=== PATIENT | female | born 1945 | race Asian ===

== ENCOUNTER 2017-05-02 11:37 | Inpatient (IN) | payer MEDICAID, OTHER ==
[~2017-05-02] VITALS: Ht 152.4 cm; Wt 54.6 kg
[2017-05-02 17:55] VITALS: BP 139/85; PULSE 75; RESP 18; TEMP 97.9; O2SAT 97
[2017-05-02] MEDS ORDERED: diphenhydrAMINE HCL 25 MG CAP PO PRN (18:15)
[2017-05-02] MEDS ORDERED: LORazepam 0.5 MG TAB PO PRN (18:15)
[2017-05-02] MEDS ORDERED: LORazepam 2 MG/ML VIAL IM PRN (18:15)
[2017-05-02] MEDS ORDERED: diphenhydrAMINE HCL 50 MG/ML VIAL IM PRN (18:15)
[2017-05-02] MEDS ORDERED: cloNIDine HCL 0.1 MG TAB PO PRN (18:15)
[2017-05-02] MEDS ORDERED: ACETAMINOPHEN 325 MG TAB PO PRN (18:30)
[2017-05-02] MEDS ORDERED: ALUMINUM/MAGNESIUM/SIMETH 30 ML CUP PO PRN (18:30)
[2017-05-02] MEDS ORDERED: BISACODYL EC 5 MG TABEC PO PRN (18:30)
[2017-05-03 06:00] VITALS: BP 171/73; PULSE 62; RESP 17; TEMP 97.8; O2SAT 98
[2017-05-03] MEDS ORDERED: DEXTROSE 50% IN WATER 50 ML VIAL(D50) IV PRN ×2 (08:00→14:45)
[2017-05-03] MEDS ORDERED: GLUCAGON 1 MG/ML VIAL OTHER PRN (08:00)
[2017-05-03] MEDS ORDERED: metFORMIN HCL 500 MG TAB PO SCH (09:00)
[2017-05-03] MEDS ORDERED: LISINOPRIL 10 MG TAB PO SCH (09:00)
[2017-05-03] MEDS ORDERED: PNEUMOCOCCAL POLYVALENT INJ 25 MCG/0.5 ML SYR IM ONE (10:00)
[2017-05-03 10:16] LABS: ANION GAP 11 MEQ/L (5-15); BICARBONATE 23.3 MEQ/L (21.0-32.0); BLOOD UREA NITROGEN 20 MG/DL (7-18); CHLORIDE 103 MEQ/L (98-107); GLOMERULAR FILTRATION RATE 45 ML/MIN (>89); POTASSIUM 4.2 MEQ/L (3.5-5.1); SODIUM (NA) 137 MEQ/L (136-145)
[2017-05-03 10:20] LABS: LDL CHOLESTEROL 157 MG/DL (0-99)
[2017-05-03 10:54] VITALS: BP 157/73
[2017-05-03] MEDS ORDERED: INSULIN ASPART SUPPLEMENTAL SCALE SQ SCH (11:00)
[2017-05-03] MEDS ORDERED: METF500T PO (11:02)
[2017-05-03] MEDS ORDERED: LISI10TA3 PO (11:02)
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
[2017-05-03 13:26] LABS: HEMOGLOBIN A1a 1.5 %; HEMOGLOBIN A1b 2.8 %; HEMOGLOBIN Ao 78.5 %; HEMOGLOBIN LA1C 3.5 %; HEMOGLOBIN P3 4.7 %
--- NOTE | 2017-05-03 14:08 | PD.CONS ---
HPI Service [facility] Consult Requested By Psychiatry team Reason for Consult Medical management Primary Care Physician Unknown Diagnoses: History of Present Illness Written by Christopher Kramer, acting as scribe for Dr. Alfaro on 05/03/17 at 14: 06. Sai historical interpreter use: Walter 2001 Patient is a 72-year-old Cantonese female with primary medical history of diabetes, hypertension who came in the hospital under Whitman act transferred from [facility] for evaluation of auditory hallucinations. She is now admitted to inpatient psychiatry unit for further evaluation. Consulted for medical management. Patient seen and examined today. Speaks Cantonese only, very minimal Indonesian. Commercial Reporter services use. Patient is very pleasant. Patient knows she is in the hospital does not know the name, she knows the month is April. States that she has diabetes and hypertension and that her mother of complications of diabetes. Denies any surgical history. She states that the only problem she has is that after she had a baby, she became somewhat incontinent of her urine and sometimes stool. Reports her told her to have it fixed but she said she wasn't able to. Patient reports she was given some medication (Ativan ) and she felt like she is dizzy or asleep all the time. When asked if she is having auditory hallucination, patient was defensive saying "are you saying I'm crazy ."Otherwise, she denies any pain or discomfort, denies shortness of breath or dyspnea, denies nausea, vomiting, diarrhea. Denies fevers or chills. Denies dysuria. As per nursing staff, patient has been having some hallucinations and noncompliance with her medications. Her daughter suspects that she has bipolar and she is also becoming very aggressive with family members. Daughter states that patient has been seeing people who have including her brother and other relatives. Review of Systems Except as stated in HPI: all other systems reviewed are Neg Past Family Social History Allergies: Coded Allergies: No Known Allergies (Unverified , 05/02/17) Past Medical History Diabetes Hypertension HLD Past Surgical History None Reported Medications Reported Meds & Active Scripts Active Reported Lisinopril 10 Mg Tab 10 Mg PO DAILY Metformin (Metformin HCl) 500 Mg Tab 500 Mg PO DAILY With a meal Active Ordered Medications Current Medications Medications (Trade) Dose Ordered Sig/Yesi Route Start Time Stop Time Status Last Admin (Ativan) 0.5 mg Q12H PRN PO 05/02/17 18:15 (Ativan Inj) 0.5 mg Q12H PRN IM 05/02/17 18:15 (Benadryl) 25 mg Q6H PRN PO 05/02/17 18:15 (Benadryl Inj) 25 mg Q6H PRN IM 05/02/17 18:15 (Catapres) 0.1 mg Q8HR PRN PO 05/02/17 18:15 (Tylenol) 650 mg Q4H PRN PO 05/02/17 18:30 (Mag-Al Plus Susp Liq) 30 ml Q6H PRN PO 05/02/17 18:30 (Dulcolax Ec) 10 mg DAILY PRN PO 05/02/17 18:30 (Glucophage) 500 mg DAILY PO 05/03/17 09:00 05/03/17 09:00 (Prinivil) 10 mg DAILY PO 05/03/17 09:00 05/03/17 09:00 (D50w (Vial) Inj) 50 ml UNSCH PRN IV 05/03/17 08:00 (Glucagon Inj) 1 mg UNSCH PRN OTHER 05/03/17 08:00 Family History Mother has diabetes and of complications of diabetes Social History Denies alcohol use Denies tobacco use Denies illicit drug use Physical Exam Vital Signs Vital Signs Date Time Temp Pulse Resp B/P Pulse Ox O2 Delivery O2 Flow Rate FiO2 05/03/17 10:54 157/73 05/03/17 06:00 97.8 62 17 171/73 98 05/02/17 17:55 97.9 75 18 139/85 97 Physical Exam GENERAL: This is a well-nourished, well-developed patient, in no apparent distress. SKIN: Warm and dry. HEAD: Atraumatic. Normocephalic. No temporal or scalp tenderness. EYES: Pupils equal round and reactive. Extraocular motions intact. No scleral icterus. No injection or drainage. ENT: Nose without bleeding. Throat without erythema. Uvula midline. Airway patent. NECK: Trachea midline. Supple. CARDIOVASCULAR: Regular rate and rhythm without murmurs, gallops, or rubs. RESPIRATORY: Clear to auscultation. Breath sounds equal bilaterally. No wheezes , rales, or rhonchi. GASTROINTESTINAL: Abdomen soft, non-tender, nondistended. Bowel sounds active 4. No guarding. MUSCULOSKELETAL: Extremities without clubbing, cyanosis, or edema. NEUROLOGICAL: Awake and alert. Oriented to person, month. Motor and sensory grossly within normal limits. Normal speech. Laboratory Outside records reviewed showed head CT with old stroke, CBC, CMP, urinalysis unremarkable Laboratory Tests Test 05/03/17 09:00 Sodium Level 137 Potassium Level 4.2 Chloride Level 103 Carbon Dioxide Level 23.3 Anion Gap 11 Blood Urea Nitrogen 20 Creatinine 1.18 Estimat Glomerular Filtration 45 Rate Random Glucose 387 Calcium Level 9.2 Triglycerides Level 102 Cholesterol Level 248 LDL Cholesterol 157 HDL Cholesterol 71.0 Cholesterol/HDL Ratio 3.49 Result Diagram: 05/03/17 0900 Assessment and Plan Problem List: (1) HLD (hyperlipidemia) ICD Code: E78.5 Status: Chronic (2) DM type 2 (diabetes mellitus, type 2) ICD Code: E11.9 Status: Chronic (3) HTN (hypertension) ICD Code: I10 Status: Chronic Assessment and Plan Patient is a 72-year-old Cantonese female with primary medical history of diabetes, hypertension who came in the hospital under Whitman act transferred from [facility] for evaluation of auditory hallucinations. She is now admitted to inpatient psychiatry unit for further evaluation. Consulted for medical management. Auditory hallucinations - Managed by psychiatry team HTN - Elevated BP - On lisinopril 10 mg, will hold for now secondary to elevated creatinine - hydralazine 10mg TID, - clonidine PRN DM 2 - On metformin, will hold off for now secondary to elevated creatinine - Insulin sliding scale - Monitor Accu-Cheks - Check hemoglobin A1c Acute kidney injury - Previous creatinine in another facility is 0.62 - Possibly dehydration related. Check CK patient has been receiving intramuscular injections to rule out rhabdomyolysis - Avoid nephrotoxins - Encourage by mouth fluid Hyperlipidemia - Discuss with patient results of labs regarding her LDL, starting on statin medication, risks and benefits. Agrees with plan - Start atorvastatin 20 mg daily DVT prop ambulatory Code Status Full Code Discussed Condition With Patient, nursing, Dr. Leon This note was transcribed by soren Kramer I, Dr. Joce Alfaro personally performed the history, physical exam, and medical decision making; and confirmed the accuracy of the information in the transcribed note. Authenticated by Dr. Joce Alfaro on 05/03/17 at 14:06 Christopher Troy May 03, 2017 14:08 Joce Alfaro MD May 03, 2017 15:11
[2017-05-03] MEDS ORDERED: cloNIDine HCL 0.1 MG TAB PO PRN (15:00)
[2017-05-03] MEDS: INSULIN ASPART SUPPLEMENTAL SCALE SQ SCH ×2 (16:00→21:00)
[2017-05-03 16:58] LABS: INDIRECT BILIRUBIN 0.6 MG/DL (0.0-0.8); TOTAL BILIRUBIN ADULT 0.7 MG/DL (0.2-1.0)
[2017-05-03] MEDS: hydrALAZINE HCL 10 MG TAB PO SCH (21:01)
[2017-05-03] MEDS: ATORVASTATIN 20 MG TAB PO SCH (21:01)
[2017-05-04 05:24] VITALS: BP 157/74; PULSE 76; RESP 17; TEMP 96.8
[2017-05-04] MEDS: hydrALAZINE HCL 10 MG TAB PO SCH ×3 (06:05→22:05)
[2017-05-04] MEDS: INSULIN ASPART SUPPLEMENTAL SCALE SQ SCH ×4 (06:05→23:00)
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
[2017-05-04 13:41] VITALS: BP 149/69; PULSE 76; RESP 18; TEMP 98.9; O2SAT 97
[2017-05-04 15:20] LABS: HEMATOCRIT 42.4 % (35.0-46.0); MEAN CELL VOLUME 68.8 FL (80.0-100.0); MEAN CORPUSCULAR HEMOGLOBIN 21.7 PG (27.0-34.0); MEAN CORPUSCULAR HGB CONC 31.5 % (32.0-36.0); PLATELET COUNT 285 TH/MM3 (150-450); RED BLOOD COUNT 6.16 MIL/MM3 (4.00-5.30); RED CELL DISTRIBUTION WIDTH 15.9 % (11.6-17.2); REVIEW FLAG FINAL; WHITE BLOOD COUNT 8.4 TH/MM3 (4.0-11.0)
[2017-05-04 15:45] LABS: BICARBONATE 28.2 MEQ/L (21.0-32.0); POTASSIUM 4.2 MEQ/L (3.5-5.1)
[2017-05-04 16:28] LABS: BACTERIA, URINE MOD /hpf; BLOOD, URINE NEG (NEG); COMMENT (UR) CULTURE INDICATED; CULTURE IF INDICATED CULTURE INDICATED; GLUCOSE,URINE NEG (NEG); HYALINE CAST, URINE 1 /lpf (RARE); KETONE, URINE NEG (NEG); MUCUS URINE FEW /lpf (OCC); NITRITE,URINE NEG (NEG); PH, URINE 5.5 (5.0-8.5); SQUAMOUS EPITHELIAL CELL URINE <1 /hpf (0-5); URINE COLOR YELLOW (YELLW/STRAW)
[2017-05-04 16:49] VITALS: BP 144/70; PULSE 79; RESP 18; TEMP 97.9
[2017-05-04] MEDS: NITROFURANTOIN MONOHYD MACROCR 100 MG CAP PO SCH (18:31)
[2017-05-04] MEDS: ATORVASTATIN 20 MG TAB PO SCH (21:38)
[2017-05-04 22:00] VITALS: BP 157/71; PULSE 70; RESP 20; TEMP 96.3; O2SAT 97
[2017-05-05] MEDS: hydrALAZINE HCL 10 MG TAB PO SCH (05:57)
[2017-05-05 06:08] VITALS: BP 161/69; PULSE 71; RESP 18; TEMP 97.7; O2SAT 99
[2017-05-05] MEDS: INSULIN ASPART SUPPLEMENTAL SCALE SQ SCH ×4 (06:26→21:00)
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
[2017-05-05] MEDS ORDERED: hydrALAZINE HCL 10 MG TAB PO PRN (10:30)
[2017-05-05] MEDS: LISINOPRIL 10 MG TAB PO SCH (11:40)
[2017-05-05] MEDS: NITROFURANTOIN MONOHYD MACROCR 100 MG CAP PO SCH ×2 (11:40→17:55)
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
[2017-05-05 15:24] VITALS: BP 125/69; PULSE 73
[2017-05-05 18:01] VITALS: BP 177/81; PULSE 83; RESP 19; O2SAT 99
--- NOTE | 2017-05-05 18:35 | HHI.PR ---
Blank section for building Written by Chiquita Corona, acting as scribe for Dr. Perez on 05/05/17 at 18:34. Chart reviewed also reviewed charting from prior hospitalization including urine culture C&S report Patient restarted on home lisinopril as well as home metformin Macrobid DC'd and patient started on Bactrim DS by mouth recommend one tablet every 12 hours 5 days Patient appears medically stable at this point we'll sign off if patient's condition changes or further assistance is needed please reconsult Recommended outpatient follow-up after discharge Chiquita Corona May 05, 2017 18:35
[2017-05-05 20:15] VITALS: BP 173/82; PULSE 78; RESP 16; TEMP 97.8; O2SAT 97
[2017-05-05] MEDS: SULFAMETHOXAZOLE-TRIMETHOPRIM DS 800-160 MG TAB PO SCH (21:56)
[2017-05-05] MEDS: QUEtiapine FUMARATE 25 MG TAB PO SCH (21:56)
[2017-05-05] MEDS: ATORVASTATIN 20 MG TAB PO SCH (21:56)
[2017-05-06 06:00] VITALS: BP 128/72; PULSE 70; RESP 16; TEMP 97.5
[2017-05-06] MEDS: INSULIN ASPART SUPPLEMENTAL SCALE SQ SCH ×4 (06:51→21:20)
[2017-05-06 07:08] LABS: BICARBONATE 24.8 MEQ/L (21.0-32.0); POTASSIUM 4.3 MEQ/L (3.5-5.1)
[2017-05-06] MEDS: QUEtiapine FUMARATE 25 MG TAB PO SCH ×2 (09:39→21:20)
[2017-05-06] MEDS: SULFAMETHOXAZOLE-TRIMETHOPRIM DS 800-160 MG TAB PO SCH ×2 (09:39→21:20)
[2017-05-06] MEDS: metFORMIN HCL 500 MG TAB PO SCH (09:40)
[2017-05-06] MEDS: LISINOPRIL 10 MG TAB PO SCH (09:40)
--- NOTE | 2017-05-06 13:02 | HHI.PYPN ---
Subjective Remarks Patient seen and examined with counselor and nurse with the assistance of computer-based lapper Marlyn Evangelista. On my examination today, the patient complains of feeling somewhat dizzy. I have asked the nurse to check orthostatic vital signs, and the patient is not presently orthostatic by blood pressure or heart rate. She seems somewhat calmer since starting Seroquel. She slept fairly well overnight. She says that she spoke with her daughter, and this topic does not occasion any paranoia about the family. No other reported side effects from medications. No other physical complaints besides a mild cough. Review of Systems ROS Limitations: Language Barrier, Poor Historian Except as stated in HPI: all other systems reviewed are Neg Objective Alert: Yes [place]: Person, Place Mood: Other (Calmer) Affect: Restricted Memory Intact: Comment (Not assessed) Hallucinations: Other (No hallucinations) Delusions: No Delusion Type: Other (No delusions elicited) Suicidal: Ideation (No SI) Homicidal: Ideation (No HI) Insight/Judgment Poor Remarks No motor abnormalities noted. Grooming and hygiene fair. TP fairly linear. Labs Test 05/06/17 06:05 Sodium Level 141 MEQ/L Potassium Level 4.3 MEQ/L Chloride Level 106 MEQ/L Carbon Dioxide Level 24.8 MEQ/L Anion Gap 10 MEQ/L Blood Urea Nitrogen 22 MG/DL Creatinine 0.78 MG/DL Estimat Glomerular Filtration 73 ML/MIN Rate Random Glucose 149 MG/DL Calcium Level 8.9 MG/DL Date/Time Procedure Status Source Growth 05/04/17 16:15 Urine Culture - Final Complete Urine Clean Catch Escherichia Coli Labs reviewed. GFR somewhat improved. Thiamine wnl. Vitals/IOs Vital Signs Date Time Temp Pulse Resp B/P Pulse Ox O2 Delivery O2 Flow Rate FiO2 05/06/17 06:00 97.5 70 16 128/72 05/05/17 20:15 97 Intake and Output 05/05/17 05/05/17 05/06/17 08:00 16:00 00:00 Intake Total 360 ml 480 ml Balance 360 ml 480 ml Assessment & Plan Problem List: (1) Adjustment disorder ICD Code: F43.20 Assessment & Plan Patient does seem calmer with addition of Seroquel, and she is not presently orthostatic, and so I think this is less likely to be contributing to her subjective dizziness. I will not titrate the dose of Seroquel at this time however. Patient was also recently restarted on home antihypertensive. We will continue to monitor this symptom. Fall precautions in place. Hospitalist input noted and appreciated. I note Macrobid has been switched to Bactrim. Continue other medications and care as ordered. Justification for Cont. Inpt. Possible complicating condition. Risk for decompensation Discharge Planning Pending outcome of [place] [facility] tomorrow. Request HC Surrog/Guard Advoc?: No Problem Qualifiers (1) Adjustment disorder: Qualified Code: F43.20 - Adjustment disorder, unspecified type Luis Fernando Leon MD May 06, 2017 13:02
[2017-05-06 18:00] VITALS: BP 122/60; PULSE 73; RESP 18; TEMP 97.7; O2SAT 97
[2017-05-06] MEDS: ATORVASTATIN 20 MG TAB PO SCH (21:20)
[2017-05-07 05:59] VITALS: BP 136/64; PULSE 68; RESP 16; TEMP 97.6
[2017-05-07] MEDS: INSULIN ASPART SUPPLEMENTAL SCALE SQ SCH ×2 (06:04→11:40)
[2017-05-07] MEDS ORDERED: QUET1TAB7 PO (10:51)
[2017-05-07] MEDS ORDERED: SULF1TAB23 PO (10:51)
--- NOTE | 2017-05-07 10:51 | HHI.FF ---
Face to Face Verification Diagnosis: (1) Adjustment disorder (2) HTN (hypertension) (3) DM type 2 (diabetes mellitus, type 2) Home Health Nursing Order: Medical education Signs/symptoms of disease process Medication education-adverse effect Accounting Systems Analyst Order: To Evaluate: Living conditions/environment, Support services Order: To Provide: Long range planning, Community services I have seen patient Benjamín Altamirano on 05/07/17. My clinical findings support the need for the requested home health care services because: Need for psychosocial assistance Impaired cognition/judgement I certify that my clinical findings support that this patient is homebound because: Need for psychosocial assistance Luis Fernando Leon MD May 07, 2017 10:51
--- NOTE | 2017-05-07 10:52 | HHI.DS ---
Psychiatry Discharge Summary Inpatient Psychiatric care?: Yes Advance Directive: No Reason Not Provided: states she's not familiar with it Mental Health AdvanceDirective: No Health Care Proxy: No Admission Admission Date May 02, 2017 at 15:27 Admission Diagnosis: (1) Adjustment disorder ICD Code: F43.20 Brief History Ms. Altamirano is a 71 year-old female with no known psychiatric history who presents in transfer from [facility] under a Whitman Act. Reviewing the notes from [place], it appears that patient was initially brought to [facility] and sent to [place] because of elevated BP and glucose. She was noted to have seen a Dr. Pena in psychiatric consultation, but Dr. Pena's note is not available for my review. From CM notes from [place], patient is allegedly increasingly "agitated and hearing voices" and thinking that her xogldnof-ev-wca is having an affair with a "whore next door." Patient's blood pressure was severely elevated at outside hospital but was brought under control with antihypertensives. There is apparently also some concern that the patient may be nonadherent with her general medical medications. Reviewing our own electronic medical record, it appears this is patient's first visit to [place]. Patient seen and examined with nurse with the assistance of [employer] computer- based machinist general, Cecille [id number]. Interview is quite difficult because the patient is very defensive about speaking with a psychiatrist. She keeps emphasizing that she is "not crazy," growing increasingly frantic in her insistence of this fact as the interview goes on. She says that she was sent into the hospital, "because my son thought I was crazy." She insists that she is "not crazy, but I am getting crazier the longer I stay." Improvement Specialist notes that some of patient's responses are nonsensical. Patient does make statements about "wanting to kill them" alluding to her family for putting her into the hospital, but it is difficult to tell if she genuinely has violent intent toward family. She says, "my son no good. Because he loves a prostitute and when I point that out he says I'm crazy. That woman does not love my son. She is just trying to get money from him." Patient alleges that this prostitute "gave menstrual liquid to consume and that's why he is obsessed with her." She insists that he son and uqharxmz-yv-upe will make up stories to keep her in the hospital. She initially says her might be able to speak on her behalf, but then she says that her son has bought her off with cigarettes." She becomes increasingly distraught throughout the interview and threatens to "jump into the sea." I have inquired of the machinist general whether this is a culturally appropriate interaction with a psychiatrist, and the machinist general says that while mental illness is highly stigmatized in [place] culture, patient 's responses seem excessive in context. I am unable to obtain any meaningful past psychiatric, family, chemical dependency or social history from the patient, I suspect because of the language barrier and also because she is becoming increasingly distressed with extended interview. Nurse has been in contact with patient's wzzxuibs-xh-vgs regarding signs of mental illness observed at home, please refer to the nursing documentation. Tobacco Use In Past 30 Days: No Tobacco Past 30 Days Alcohol Use: Never Hospital Course Patient was admitted to a locked, inpatient psychiatric unit. A general medical consultation was obtained. Appropriate precautions were in place throughout patient's hospital stay. Patient was seen and examined daily on the unit with computer-based machinist general by psychiatry and also visited by counselor. Psychotropic medications were adjusted. Dementia workup was undertaken, and the patient was found to have an Escherichia coli UTI, but there was no other laboratory abnormality to suggest a cause for patient's symptoms. There was no evidence of any suicidality or homicidality on the inpatient unit. Collateral was obtained from the patient's daughter. Patient continued to have poor insight into mental illness but did say that she would accept psychotropic medications. No reported side effects from medications on day of discharge. Patient's case was presented to the Whitman Act court. Patient 's daughter was in attendance and reported that family would be agreeable to accepting patient home with the assistance of home healthcare. Judge Feliz has ordered the patient's discharge from the inpatient unit today. I will discharge the patient into her family's care with home healthcare. Patient is to follow-up psychiatrically as arranged by counselor. Patient to return to psychiatric emergency room for any concerning psychiatric symptoms. Results Blood Pressure 136 / 64 Vital Signs Date Time Temp Pulse Resp B/P Pulse Ox O2 Delivery O2 Flow Rate FiO2 7/20/17 05:59 97.6 68 16 136/64 05/06/17 18:00 97 Laboratory Tests Test 05/04/17 05/04/17 05/06/17 14:57 16:15 06:05 Red Blood Count 6.16 MIL/MM3 (4.00-5.30) Mean Corpuscular Volume 68.8 FL (80.0-100.0) Mean Corpuscular Hemoglobin 21.7 PG (27.0-34.0) Mean Corpuscular Hemoglobin 31.5 % Concent (32.0-36.0) Blood Urea Nitrogen 24 MG/DL (7-18) 22 MG/DL (7-18) Estimat Glomerular Filtration 62 ML/MIN (>89) 73 ML/MIN (>89) Rate Random Glucose 209 MG/DL 149 MG/DL (74-106) (74-106) Urine Leukocyte Esterase LARGE (NEG) Urine WBC 30 /hpf (0-5) Urine Bacteria MOD /hpf (NONE) Urine Mucus FEW /lpf (OCC) Laboratory Results Test 05/03/17 09:00 Hemoglobin A1c 8.6 % (4.3-6.0) Triglycerides Level 102 MG/DL (42-150) Cholesterol Level 248 MG/DL (120-200) LDL Cholesterol 157 MG/DL (0-99) HDL Cholesterol 71.0 MG/DL (40.0-60.0) Summary of Procedures None done Imaging None done Pending results at discharge: No Medications # of Antipsychotic meds at D/C: 1 Approp Antipsych med options 1 - Minimum of three failed multiple trials of monotherapy. 2 - Documented plan to taper to monotherapy due to previous use of multiple meds OR cross-taper in progress at D/C. 3 - Documentation of augmentation of Clozapine. 4 - Justification other than those listed in allowable values 1-3, document here : Discharge Discharge Date: May 07, 2017 Discharge Diagnosis: (1) Adjustment disorder Diagnosis: Principal ICD Code: F43.20 Suspect Dementia with behavioral disturbance +/- component of Delirium due to UTI Mental Status Exam at Disch Patient is in hospital gown. She is well groomed. She is oriented to person and hospital at least and is awake and alert. No motor abnormalities noted. Speech within normal limits for rate, tone and volume. No issues with mood noted and affect somewhat blunted. Thought process remains perseverative on not having a mental illness. Possibly some ongoing paranoia. No audiovisual hallucinations. No suicidal or homicidal ideation verbalized. Insight and judgment are poor. Pt Condition on Discharge: Stable Discharge Disposition: Disch w/ Home Health Serv Discharge Instructions Diet Instructions: Heart Healthy Diet Activities you can perform: Weight Bearing as Emily Scheduled Appointment: as per counselor's notes New Medications: Quetiapine (Quetiapine) 25 Mg Tab 25 MG PO BID Mental Health Days 15 Ref 1 TAB Sulfamethoxazole-Trimethoprim (Sulfamethoxazole-Trimethoprim) 800-160 Mg Tab 1 TAB PO Q12HR Antibiotic Days 5 Ref 0 TAB Continued Medications: Lisinopril (Lisinopril) 10 Mg Tab 10 MG PO DAILY #30 Ref 0 TAB Metformin (Metformin) 500 Mg Tab 500 MG PO DAILY With a meal Blood Sugar Management #30 Ref 0 TAB Discharge Time <= 30 minutes Discharge/Advance Care Plan Health Problems: (1) Adjustment disorder Goals to promote your health * To prevent worsening of your condition and complications * To maintain your health at the optimal level Directions to meet your goals Take your medications as prescribed Follow your dietary instruction Follow activity as directed Keep your appointments as scheduled Take your immunizations and boosters as scheduled If your symptoms worsen call your PCP, if no PCP go to Urgent Care Center or Emergency Room For 24/ questions related to your inpatient stay or results of tests pending at discharge, please contact Dr. Luis Fernando Leon at Smoking is Dangerous to Your Health. Avoid second hand smoking Problem Qualifiers (1) Adjustment disorder: Qualified Code: F43.20 - Adjustment disorder, unspecified type Luis Fernando Leon MD May 07, 2017 10:52
[2017-05-07] MEDS: LISINOPRIL 10 MG TAB PO SCH (11:25)
[2017-05-07] MEDS: QUEtiapine FUMARATE 25 MG TAB PO SCH (11:25)
[2017-05-07] MEDS: SULFAMETHOXAZOLE-TRIMETHOPRIM DS 800-160 MG TAB PO SCH (11:25)
[2017-05-07] MEDS: metFORMIN HCL 500 MG TAB PO SCH (11:25)
== END 2017-05-07 13:30 | disposition home health service (06) | DRG 882 ==
LOC: H250 15:27
PROVIDERS: ADMIT Psychiatry & Neurology Psychiatry; ATTEND Psychiatry & Neurology Psychiatry
DX: F43.20 Adjustment disorder, unspecified (principal); N17.9 Acute kidney failure, unspecified; N39.0 Urinary tract infection, site not specified; B96.20 Unspecified Escherichia coli [E. coli] as the cause of diseases classified elsewhere; E11.9 Type 2 diabetes mellitus without complications; Z79.84 Long term (current) use of oral hypoglycemic drugs; R44.0 Auditory hallucinations; E86.0 Dehydration; I10 Essential (primary) hypertension; E78.5 Hyperlipidemia, unspecified; Z83.3 Family history of diabetes mellitus
CPT/HCPCS: 80048; 80061; 80076; 81001; 82140; 82550; 82607; 82746; 82948; 83036; 84425; 85027; 86592; 86703; 87077; 87086; 87186; J1815

== ENCOUNTER 2018-02-09 23:36 | Inpatient (IN) | payer OTHER ==
[~2018-02-09] VITALS: Ht 149.9 cm; Wt 53.6 kg
[~2018-02-09 23:36] MED LIST: LISI10TA3 PO; METF500T PO; QUET1TAB7 PO; SULF1TAB23 PO
[2018-02-10] VITALS: BP 191/91; PULSE 93; RESP 18; TEMP 99.1; O2SAT 96
--- NOTE | 2018-02-10 00:05 | PD ---
HPI Chief Complaint: BA Time Seen by Provider: 00:03 Travel History International Travel<30 days: No Contact w/Intl Traveler<30days: No Traveled to known affect area: No History of Present Illness HPI 72-year-old female who speaks Cantonese, is brought to the emergency department under Whit[place] act for psychiatric evaluation. Per the police report, patient has not been taking her medication. She has been seeing ghosts and fighting with her daughter. Her daughter contacted police who brought her here. Patient is unable to answering my questions due to language barrier however Dr. Green has spoken with her in regards to her current situation. Please refer to her documentation. PFSH Past Medical History Cancer: No Cardiovascular Problems: No Diabetes: Yes (type II) Headaches: No Psychiatric: Yes (Schizophrenia, Bipolar Disorder) Seizures: No Social History Tobacco Use: No Substance Use: No Allergies-Medications (Allergen,Severity, Reaction): Coded Allergies: Beef Containing Products (Unverified Adverse Reaction, Unknown, 06/02/17) Reported Meds & Prescriptions Reported Meds & Active Scripts Active Quetiapine (Quetiapine Fumarate) 25 Mg Tab 25 Mg PO BID 15 Days Reported Lisinopril 10 Mg Tab 10 Mg PO DAILY Metformin (Metformin HCl) 500 Mg Tab 500 Mg PO DAILY With a meal Review of Systems Except as stated in HPI: all other systems reviewed are Neg Physical Exam Narrative GENERAL: Well-nourished female patient, ambulatory no acute distress. SKIN: Focused skin assessment warm/dry. HEAD: Atraumatic. Normocephalic. EYES: Pupils equal and round. No scleral icterus. No injection or drainage. ENT: No nasal bleeding or discharge. Mucous membranes pink and moist. NECK: Trachea midline. No JVD. Abrasion to the left anterior neck CARDIOVASCULAR: Regular rate and rhythm. No murmur appreciated. RESPIRATORY: No accessory muscle use. Clear to auscultation. Breath sounds equal bilaterally. GASTROINTESTINAL: Abdomen soft, non-tender, nondistended. Hepatic and splenic margins not palpable. MUSCULOSKELETAL: No obvious deformities. No clubbing. No cyanosis. No edema. NEUROLOGICAL: Awake and alert. No obvious cranial nerve deficits. Motor grossly within normal limits. Normal speech. Data Data Last Documented VS Vital Signs Date Time Temp Pulse Resp B/P (MAP) Pulse Ox O2 Delivery O2 Flow Rate FiO2 02/10/18 00:00 99.1 93 18 191/91 (124) 96 Orders Orders Complete Blood Count With Diff (02/10/18 00:04) Thyroid Stimulating Hormone (02/10/18 00:04) Basic Metabolic Panel (Bmp) (02/10/18 00:04) Urinalysis - C+S If Indicated (02/10/18 00:04) Psych Screen (02/10/18 00:04) Drug Screen, Random Urine (02/10/18 00:04) Alcohol (Ethanol) (02/10/18 00:04) Ct Brain W/O Iv Contrast(Rout) (02/10/18 ) Ct Cerv Spine W/O Contrast (02/10/18 ) Shoulder, Complete (>2vws) (02/10/18 ) Labs Laboratory Tests Test 02/10/18 00:30 White Blood Count 13.1 TH/MM3 Red Blood Count 5.86 MIL/MM3 Hemoglobin 12.4 GM/DL Hematocrit 39.9 % Mean Corpuscular Volume 68.1 FL Mean Corpuscular Hemoglobin 21.2 PG Mean Corpuscular Hemoglobin Concent 31.2 % Red Cell Distribution Width 16.2 % Platelet Count 265 TH/MM3 Mean Platelet Volume 8.5 FL Neutrophils (%) (Auto) 84.0 % Lymphocytes (%) (Auto) 10.9 % Monocytes (%) (Auto) 4.3 % Eosinophils (%) (Auto) 0.4 % Basophils (%) (Auto) 0.4 % Neutrophils # (Auto) 11.0 TH/MM3 Lymphocytes # (Auto) 1.4 TH/MM3 Monocytes # (Auto) 0.6 TH/MM3 Eosinophils # (Auto) 0.0 TH/MM3 Basophils # (Auto) 0.0 TH/MM3 CBC Comment DIFF FINAL Differential Comment Urine Color COLORLESS Urine Turbidity CLEAR Urine pH 5.5 Urine Specific [place] 1.020 Urine Protein NEG mg/dL Urine Glucose (UA) 1000 mg/dL Urine Ketones TRACE mg/dL Urine Occult Blood NEG Urine Nitrite NEG Urine Bilirubin NEG Urine Urobilinogen LESS THAN 2.0 MG/DL Urine Leukocyte Esterase NEG Urine RBC 1 /hpf Urine WBC 7 /hpf Urine Bacteria FEW /hpf Microscopic Urinalysis Comment CULT NOT INDICATED Blood Urea Nitrogen 28 MG/DL Creatinine 1.54 MG/DL Random Glucose 393 MG/DL Calcium Level 9.1 MG/DL Sodium Level 139 MEQ/L Potassium Level 3.9 MEQ/L Chloride Level 105 MEQ/L Carbon Dioxide Level 22.3 MEQ/L Anion Gap 12 MEQ/L Estimat Glomerular Filtration Rate 33 ML/MIN Thyroid Stimulating Hormone 3rd Gen 3.570 uIU/ML Urine Opiates Screen NEG Urine Barbiturates Screen NEG Urine Amphetamines Screen NEG Urine Benzodiazepines Screen NEG Urine Cocaine Screen NEG Urine Cannabinoids Screen NEG Ethyl Alcohol Level LESS THAN 3 MG/DL MDM Medical Decision Making Medical Screen Exam Complete: Yes Emergency Medical Condition: Yes Medical Record Reviewed: Yes Differential Diagnosis Mood disorder versus personality disorder versus adjustment reaction disorder Narrative Course 72-year-old female presents emergency department under Whitman act for psychiatric evaluation. mortgage loan officer originator tells me that the patient has not been taking her medication and has been paranoid and combative with her daughter. Dr. Green has discussed with the patient when she is here and further imaging studies have been ordered. Please refer to her documentation. Laboratory Tests Test 02/10/18 00:30 White Blood Count 13.1 TH/MM3 Red Blood Count 5.86 MIL/MM3 Hemoglobin 12.4 GM/DL Hematocrit 39.9 % Mean Corpuscular Volume 68.1 FL Mean Corpuscular Hemoglobin 21.2 PG Mean Corpuscular Hemoglobin Concent 31.2 % Red Cell Distribution Width 16.2 % Platelet Count 265 TH/MM3 Mean Platelet Volume 8.5 FL Neutrophils (%) (Auto) 84.0 % Lymphocytes (%) (Auto) 10.9 % Monocytes (%) (Auto) 4.3 % Eosinophils (%) (Auto) 0.4 % Basophils (%) (Auto) 0.4 % Neutrophils # (Auto) 11.0 TH/MM3 Lymphocytes # (Auto) 1.4 TH/MM3 Monocytes # (Auto) 0.6 TH/MM3 Eosinophils # (Auto) 0.0 TH/MM3 Basophils # (Auto) 0.0 TH/MM3 CBC Comment DIFF FINAL Differential Comment Urine Color COLORLESS Urine Turbidity CLEAR Urine pH 5.5 Urine Specific [place] 1.020 Urine Protein NEG mg/dL Urine Glucose (UA) 1000 mg/dL Urine Ketones TRACE mg/dL Urine Occult Blood NEG Urine Nitrite NEG Urine Bilirubin NEG Urine Urobilinogen LESS THAN 2.0 MG/DL Urine Leukocyte Esterase NEG Urine RBC 1 /hpf Urine WBC 7 /hpf Urine Bacteria FEW /hpf Microscopic Urinalysis Comment CULT NOT INDICATED Blood Urea Nitrogen 28 MG/DL Creatinine 1.54 MG/DL Random Glucose 393 MG/DL Calcium Level 9.1 MG/DL Sodium Level 139 MEQ/L Potassium Level 3.9 MEQ/L Chloride Level 105 MEQ/L Carbon Dioxide Level 22.3 MEQ/L Anion Gap 12 MEQ/L Estimat Glomerular Filtration Rate 33 ML/MIN Thyroid Stimulating Hormone 3rd Gen 3.570 uIU/ML Urine Opiates Screen NEG Urine Barbiturates Screen NEG Urine Amphetamines Screen NEG Urine Benzodiazepines Screen NEG Urine Cocaine Screen NEG Urine Cannabinoids Screen NEG Ethyl Alcohol Level LESS THAN 3 MG/DL Lab work is without acute concern. Patient does have hyperglycemia at 393. This would coincide with her not taking her medication or poorly controlled diabetes. Patient is medically cleared to undergo psychiatric screening for further evaluation and disposition. Diagnosis Primary Impression: Adjustment disorder Qualified Codes: F43.25 - Adjustment disorder with mixed disturbance of emotions and conduct Additional Impression: DM type 2 (diabetes mellitus, type 2) Qualified Codes: E11.8 - Type 2 diabetes mellitus with unspecified complications Condition: Carmela Brennan Feb 10, 2018 00:05
[2018-02-10 00:46] LABS: BASOPHIL % 0.4 % (0.0-2.0); EOSINOPHIL % 0.4 % (0.0-4.0); HEMATOCRIT 39.9 % (35.0-46.0); HEMOGLOBIN 12.4 GM/DL (11.6-15.3); LYMPH % 10.9 % (9.0-44.0); LYMPHOCYTE # 1.4 TH/MM3 (1.0-4.8); MEAN CELL VOLUME 68.1 FL (80.0-100.0); MEAN CORPUSCULAR HEMOGLOBIN 21.2 PG (27.0-34.0); MEAN CORPUSCULAR HGB CONC 31.2 % (32.0-36.0); MEAN PLATELET VOLUME 8.5 FL (7.0-11.0); MONO % 4.3 % (0.0-8.0); MONOCYTE # 0.6 TH/MM3 (0-0.9); PLATELET COUNT 265 TH/MM3 (150-450); RED BLOOD COUNT 5.86 MIL/MM3 (4.00-5.30); RED CELL DISTRIBUTION WIDTH 16.2 % (11.6-17.2); WHITE BLOOD COUNT 13.1 TH/MM3 (4.0-11.0)
[2018-02-10 00:54] LABS: BACTERIA, URINE FEW /hpf; BILIRUBIN, URINE NEG (NEG); BLOOD, URINE NEG (NEG); GLUCOSE,URINE 1000 mg/dL (NEG); KETONE, URINE TRACE mg/dL (NEG); NITRITE,URINE NEG (NEG); PH, URINE 5.5 (5.0-8.5); URINE COLOR COLORLESS (YELLW/STRAW); URINE LEUKOCYTE ESTERASE NEG (NEG)
[2018-02-10 01:09] LABS: BICARBONATE 22.3 MEQ/L (21.0-32.0); BLOOD UREA NITROGEN 28 MG/DL (7-18); CALCIUM 9.1 MG/DL (8.5-10.1); CHLORIDE 105 MEQ/L (98-107); CREATININE 1.54 MG/DL (0.50-1.00); GLOMERULAR FILTRATION RATE 33 ML/MIN (>89); GLUCOSE,RANDOM 393 MG/DL (74-106); SODIUM (NA) 139 MEQ/L (136-145)
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
--- NOTE | 2018-02-10 03:36 | RADRPT ---
EXAM DATE/TIME: 02/10/2018 03:02 [facility] COMPARISON: No previous studies available for comparison. INDICATIONS : Trauma; fall. RADIATION DOSE: 21.05 CTDIvol (mGy) MEDICAL HISTORY : None SURGICAL HISTORY : None. ENCOUNTER: Initial ACUITY: 1 day PAIN SCALE: 5/10 LOCATION: Bilateral cranial TECHNIQUE: Multiple contiguous axial images were obtained of the head. Using automated exposure control and adj ustment of the mA and/or kV according to patient size, radiation dose was kept as low as reasonably a chievable to obtain optimal diagnostic quality images. DICOM format image data is available electro nically for review and comparison. FINDINGS: No intracranial mass, hemorrhage or shift. No hydrocephalus. Remote lacunar infarct right frontal whi te matter. No acute bony abnormalities. Sinuses are clear. CONCLUSION: 1. No acute intracranial abnormalities. Remote lacunar infarct right frontal white matter. Zion Oneil MD on February 10, 2018 at 3:33 Board Certified Radiologist. This report was verified electronically.
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
--- NOTE | 2018-02-10 04:17 | RADRPT ---
EXAM DATE/TIME: 02/10/2018 02:51 [facility] COMPARISON: No previous studies available for comparison. INDICATIONS : Shoulder pain. No known injury. MEDICAL HISTORY : None. SURGICAL HISTORY : None. ENCOUNTER: Initial ACUITY: 1 day PAIN SCORE: Non-responsive. LOCATION: Left shoulder FINDINGS: Multiple view examination of the left shoulder demonstrates no evidence of fracture or dislocation. The glenohumeral and acromioclavicular joints are maintained. There is normal range of motion betwee n internal and external rotation. Bony mineralization is normal. CONCLUSION: Normal examination for a patient of this age. iZon Oneil MD on February 10, 2018 at 4:15 Board Certified Radiologist. This report was verified electronically.
[2018-02-10 08:00] VITALS: BP 190/88; PULSE 73; RESP 19; O2SAT 98
[2018-02-10] MEDS: LISINOPRIL 10 MG TAB PO SCH (08:48)
[2018-02-10] MEDS: INSULIN NovoLIN REGULAR SUPPLEMENTAL SCALE SQ SCH ×4 (08:50→22:41)
[2018-02-10 10:43] VITALS: BP 162/72; PULSE 75; RESP 19; O2SAT 98
[2018-02-10 14:30] VITALS: BP 160/71; PULSE 69; RESP 19; O2SAT 97
[2018-02-10 18:00] VITALS: BP 150/94; PULSE 78; RESP 16; TEMP 98.3; O2SAT 96
[2018-02-10] MEDS ORDERED: LORazepam 0.5 MG TAB age > 65 yrs PO PRN (21:15)
[2018-02-10] MEDS ORDERED: ALUMINUM/MAGNESIUM/SIMETH 30 ML CUP PO PRN (21:15)
[2018-02-10] MEDS ORDERED: diphenhydrAMINE HCL 25 MG CAP PO PRN (21:15)
[2018-02-10] MEDS ORDERED: LORazepam 2 MG/ML VIAL - age > 65 yrs IM PRN (21:15)
[2018-02-10] MEDS ORDERED: diphenhydrAMINE HCL 50 MG/ML VIAL IM PRN (21:15)
[2018-02-10] MEDS ORDERED: MAGNESIUM HYDROXIDE SUSP 30 ML CUP PO PRN (21:15)
[2018-02-10 22:18] VITALS: BP 190/88; PULSE 75; RESP 16; TEMP 97.5; O2SAT 98
[2018-02-11 05:29] VITALS: BP 151/76; PULSE 58; RESP 16; TEMP 97.8; O2SAT 99
[2018-02-11 07:31] LABS: BICARBONATE 27.8 MEQ/L (21.0-32.0); BLOOD UREA NITROGEN 21 MG/DL (7-18); CALCIUM 9.2 MG/DL (8.5-10.1); CHLORIDE 106 MEQ/L (98-107); CHOLESTEROL 260 MG/DL (120-200); CREATININE 0.85 MG/DL (0.50-1.00); GLOMERULAR FILTRATION RATE 66 ML/MIN (>89); GLUCOSE,RANDOM 183 MG/DL (74-106); HDL CHOLESTEROL 70.1 MG/DL (40.0-60.0); LDL CHOLESTEROL 167 MG/DL (0-99); SODIUM (NA) 143 MEQ/L (136-145); TRIGLYCERIDES 115 MG/DL (42-150)
[2018-02-11] MEDS: INSULIN NovoLIN REGULAR SUPPLEMENTAL SCALE SQ SCH ×4 (08:00→21:20)
[2018-02-11] MEDS: LISINOPRIL 10 MG TAB PO SCH ×2 (08:19→09:00)
[2018-02-11] MEDS: metFORMIN HCL 500 MG TAB PO SCH (08:19)
[2018-02-11] MEDS: QUEtiapine FUMARATE 25 MG TAB PO SCH ×2 (08:30→21:00)
[2018-02-11] MEDS ORDERED: PNEUMOCOCCAL POLYVALENT INJ 25 MCG/0.5 ML SYR IM ONE (09:00)
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
[2018-02-11 18:37] VITALS: BP 176/101; PULSE 81; RESP 16; TEMP 98.2; O2SAT 99
[2018-02-11 18:48] LABS: HEMOGLOBIN A1C 9.4 % (4.3-6.0)
[2018-02-12 05:31] VITALS: BP 166/79; RESP 16; TEMP 97.5; O2SAT 99
[2018-02-12] MEDS: INSULIN NovoLIN REGULAR SUPPLEMENTAL SCALE SQ SCH ×4 (08:00→21:00)
[2018-02-12 08:16] LABS: ALBUMIN 3.4 GM/DL (3.4-5.0); AST (GOT) 15 U/L (15-37); BICARBONATE 30.1 MEQ/L (21.0-32.0); BLOOD UREA NITROGEN 20 MG/DL (7-18); CHLORIDE 107 MEQ/L (98-107); CREATININE 0.88 MG/DL (0.50-1.00); GLOMERULAR FILTRATION RATE 63 ML/MIN (>89); GLUCOSE,RANDOM 166 MG/DL (74-106); SODIUM (NA) 143 MEQ/L (136-145)
[2018-02-12 08:19] LABS: ALKALINE PHOSPHATASE 65 U/L (45-117); ALT (GPT) 24 U/L (10-53); TOTAL BILIRUBIN ADULT 0.8 MG/DL (0.2-1.0); TOTAL PROTEIN 7.7 GM/DL (6.4-8.2)
[2018-02-12] MEDS: QUEtiapine FUMARATE 25 MG TAB PO SCH ×2 (09:00→21:07)
[2018-02-12] MEDS: metFORMIN HCL 500 MG TAB PO SCH (09:50)
[2018-02-12] MEDS: LISINOPRIL 10 MG TAB PO SCH ×2 (09:50→21:07)
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
--- NOTE | 2018-02-12 13:40 | EKG ---
Date Performed: 02/11/2018 Time Performed: 13:18:04 PTAGE: 72 years EKG: Sinus rhythm NORMAL ECG NO PREVIOUS TRACING DOCTOR: Luis Fernando Crowell Interpretating Date/Time 02/12/2018 13:37:06
--- NOTE | 2018-02-12 17:18 | HHI.PR ---
Subjective Remarks patient up and ambulating around no complains of pain complained of right elbow pain- on exam- good range of motion, no wounds Objective Vitals Vital Signs Date Time Temp Pulse Resp B/P (MAP) Pulse Ox O2 Delivery O2 Flow Rate FiO2 02/12/18 05:31 97.5 16 166/79 (108) 99 02/11/18 18:37 98.2 81 16 176/101 (126) 99 I/O 02/11/18 02/11/18 02/11/18 02/12/18 02/12/18 02/12/18 07:00 15:00 23:00 07:00 15:00 23:00 Intake Total 0 ml Balance 0 ml Intake Oral 0 ml # Voids 1 3 Result Diagram: 02/10/18 0030 02/12/18 0735 Imaging Last Impressions Shoulder X-Ray 02/10/18 0000 Signed Impressions: Service Date/Time: Saturday, February 10, 2018 02:51 - CONCLUSION: Normal examination for a patient of this age. Zion Oneil MD Head CT 02/10/18 0000 Signed Impressions: Service Date/Time: Saturday, February 10, 2018 03:02 - CONCLUSION: 1. No acute intracranial abnormalities. Remote lacunar infarct right frontal white matter. Zion Oneil MD Cervical Spine CT 02/10/18 0000 Signed Impressions: Service Date/Time: Saturday, February 10, 2018 03:02 - CONCLUSION: 1. No acute fracture. Minimal retrolisthesis of C4 on C5 likely degenerative. Moderate facet arthropathy. Zion Oneil MD Objective Remarks awake and alert, Mandarin speaking oriented to place and person and year anicteric throat- no exudates neck supple lungs- clear regular rhythm abdomen soft extremities - no edema, both UE- good range of motion gait steady A/P Assessment and Plan 72-year-old female History of hypertension, uncontrolled continue on lisinopril- increase to 10 mg po bid . Diabetes type 2 . uncontrolled [id number] 9.4 continue on Metformin. Monitor creatinine, Dietary consulted monitor Check blood sugar twice daily and adjust Hyperlipidemia. Nutrition consult in am. check LFts. consider statins Acute kidney insufficiency on initial labs. resolved. Encourage p.o. fluids. - d/w staff Heena Manley MD Feb 12, 2018 17:18
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
[2018-02-12 18:35] VITALS: BP 155/69; PULSE 76; RESP 18; TEMP 97.3; O2SAT 98
[2018-02-13 05:51] VITALS: BP 164/86; PULSE 60; RESP 17; TEMP 97.7; O2SAT 99
[2018-02-13] MEDS: INSULIN NovoLIN REGULAR SUPPLEMENTAL SCALE SQ SCH ×4 (08:00→20:46)
[2018-02-13] MEDS: metFORMIN HCL 500 MG TAB PO SCH (09:30)
[2018-02-13] MEDS: QUEtiapine FUMARATE 25 MG TAB PO SCH ×2 (09:31→20:45)
[2018-02-13] MEDS: LISINOPRIL 10 MG TAB PO SCH ×2 (09:31→20:45)
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
[2018-02-13 18:17] VITALS: BP 121/58; PULSE 71; RESP 18; TEMP 97.6; O2SAT 96
[2018-02-13] MEDS: ATORVASTATIN 10 MG TAB PO SCH (20:46)
[2018-02-14 05:18] VITALS: BP 157/88; PULSE 60; RESP 18; TEMP 97.4; O2SAT 99
[2018-02-14] MEDS: INSULIN NovoLIN REGULAR SUPPLEMENTAL SCALE SQ SCH ×4 (08:00→20:36)
[2018-02-14] MEDS: QUEtiapine FUMARATE 25 MG TAB PO SCH ×2 (08:47→20:36)
[2018-02-14] MEDS: metFORMIN HCL 500 MG TAB PO SCH (08:47)
[2018-02-14] MEDS: LISINOPRIL 10 MG TAB PO SCH ×2 (08:47→20:36)
--- NOTE | 2018-02-14 11:45 | HHI.PYPN ---
Subjective Remarks Reviewed electronic medical record discussed case with staff. Follow-up was performed in patient's room [employer] interpreter deaf. Nurse was present throughout interview. Patient remains confused reporting through the interpreter deaf that she has not seen "a doctor once since she has been here". She believes that she is confused due to her medications. Staff reports that this is a daily discussion via the interpreter deaf. Mental Status Examination Appearance: Disheveled Consciousness: Alert Orientation: Person, Place, Date/Time Motor Activity: Normal gait Speech: Unremarkable Language: Adequate Fund of Knowledge: Inadequate Attention and Concentration: Adequate Memory: Unremarkable Mood: Good Affect: Euthymic, Anxious Thought Process & Associations: Linear Thought Content: Delusional Hallucination Type: None Delusion Type: Paranoid Suicidal Ideation: No Suicidal Plan: No Suicidal Intention: No Homicidal Ideation: No Homicidal Plan: No Homicidal Intention: No Insight: Poor Judgment: Poor Results Vitals/IOs Vital Signs Date Time Temp Pulse Resp B/P (MAP) Pulse Ox O2 Delivery O2 Flow Rate FiO2 02/14/18 05:18 97.4 60 18 157/88 (111) 99 02/10/18 18:00 Room Air Intake and Output 02/14/18 02/14/18 02/15/18 08:00 16:00 00:00 Intake Total 720 ml Balance 720 ml Assessment & Plan Problem List: (1) Unspecified psychosis ICD Codes: F29 - Unspecified psychosis not due to a substance or known physiological condition Assessment & Plan Estimated LOS: Continue with treatment plan as ordered. Reevaluation will occur tomorrow when attending psychiatrist returns. Days Justification for Cont. Inpt. Moving this patient to a lower level of care would result in decompensation. Vera Lunsford Feb 14, 2018 11:45
[2018-02-14] MEDS: HYDROCHLOROTHIAZIDE 12.5 MG CAP PO SCH (12:00)
--- NOTE | 2018-02-14 16:25 | HHI.PR ---
Subjective Remarks Follow-up hypertension, diabetes and acute kidney injury. Patient seen and examined, using [employer] interpreting services to communicate with patient. Patient states she has continued left shoulder pain. Also complains of new onset burning on urination with right CVA tenderness and occasional dizziness. She does express concern regarding events leading up to hospitalization, psychiatry following. Will check orthostatic blood pressures for dizziness as well as repeat UA for new onset dysuria. Objective Vitals Vital Signs Date Time Temp Pulse Resp B/P (MAP) Pulse Ox O2 Delivery O2 Flow Rate FiO2 02/14/18 05:18 97.4 60 18 157/88 (111) 99 02/13/18 18:17 97.6 71 18 121/58 (79) 96 I/O 02/13/18 02/13/18 02/13/18 02/14/18 02/14/18 02/14/18 07:00 15:00 23:00 07:00 15:00 23:00 Intake Total 240 ml 1560 ml 360 ml 1200 ml Balance 240 ml 1560 ml 360 ml 1200 ml Intake Oral 240 ml 1560 ml 360 ml 1200 ml Result Diagram: 02/10/18 0030 02/12/18 0735 Imaging Last Impressions Shoulder X-Ray 02/10/18 0000 Signed Impressions: Service Date/Time: Saturday, February 10, 2018 02:51 - CONCLUSION: Normal examination for a patient of this age. Zion Oneil MD Head CT 02/10/18 0000 Signed Impressions: Service Date/Time: Saturday, February 10, 2018 03:02 - CONCLUSION: 1. No acute intracranial abnormalities. Remote lacunar infarct right frontal white matter. Zion Oneil MD Cervical Spine CT 02/10/18 0000 Signed Impressions: Service Date/Time: Saturday, February 10, 2018 03:02 - CONCLUSION: 1. No acute fracture. Minimal retrolisthesis of C4 on C5 likely degenerative. Moderate facet arthropathy. Zion Oneil MD Objective Remarks GENERAL: Well-developed, well-nourished disheveled female patient in [facility]. SKIN: Warm and dry. No rash. HEENT: Normocephalic. Atraumatic. Pupils equal and round. No scleral icterus. No injection or drainage. No nasal bleeding or discharge. Mucous membranes pink and moist. NECK: Supple. Trachea midline. CARDIOVASCULAR: Regular rate and rhythm. S1, S2 noted. No murmur appreciated. RESPIRATORY: No accessory muscle use. Clear to auscultation. Breath sounds equal bilaterally. GASTROINTESTINAL: Abdomen soft, non-tender, nondistended. Normoactive bowel sounds x4. : Patient with mild right CVA tenderness. MUSCULOSKELETAL: No obvious deformities. Extremities without clubbing, cyanosis , or edema. NEUROLOGICAL: Awake and alert. No obvious cranial nerve deficits. Motor grossly within normal limits. 5/5 muscle strength in bilateral upper and lower extremities. Normal speech. A/P Assessment and Plan Patient is a 72-year-old [place] female who is admitted under psychiatry services patient is Mandarin speaking. Unspecified psychosis: Management per psychiatry team, appreciate input. CM and DCF assisting. Hypertension, chronic: Continue on Lisinopril 10 mg PO BID. Add HCTZ with potassium supplementation for increased BPs overnight. Monitor BP trends. Patient complaint of dizziness this morning upon awakening, will check orthostatics. Follow. Type 2 Diabetes Mellitus, chronic - ACCU check ACHS, sliding scale, cover as needed. - [id number] 9.4 - Continue on Metformin once daily - Monitor creatinine - Dietitian consulted, appreciate input and recommendations. Hyperlipidemia: Continue Lipitor 10 mg PO HS. Nutrition consulted. Acute kidney insufficiency, resolved. Dysuria - Likely prerenal cause. LIZZETH resolved now. - Encourage importance of PO fluids. - Will recheck UA due to dysuria. Also with initial leukocytosis and left shift, will recheck CBC. Mild CVA tenderness noted on right side. DVT Prophylaxis: Ambulation. Lyric Rdz Feb 14, 2018 16:25
[2018-02-14 18:19] VITALS: BP 144/65; PULSE 78; RESP 18; TEMP 97.8; O2SAT 99
[2018-02-14 20:20] VITALS: BP_SYST 173; BP_SYST 194; BP_SYST 214; BP_DIAS 81; BP_DIAS 87; BP_DIAS 97; PULSE 61
[2018-02-14] MEDS: ATORVASTATIN 10 MG TAB PO SCH (20:36)
[2018-02-14 21:49] LABS: AUTOMATED NEUTROPHIL # 3.5 TH/MM3 (1.8-7.7); BASOPHIL % 0.6 % (0.0-2.0); EOSINOPHIL # 0.3 TH/MM3 (0-0.4); EOSINOPHIL % 4.3 % (0.0-4.0); HEMATOCRIT 40.3 % (35.0-46.0); HEMOGLOBIN 12.9 GM/DL (11.6-15.3); LYMPH % 41.7 % (9.0-44.0); LYMPHOCYTE # 3.2 TH/MM3 (1.0-4.8); MEAN CORPUSCULAR HEMOGLOBIN 21.7 PG (27.0-34.0); MEAN PLATELET VOLUME 8.1 FL (7.0-11.0); MONO % 7.7 % (0.0-8.0); MONOCYTE # 0.6 TH/MM3 (0-0.9); NEUT % 45.7 % (16.0-70.0); PLATELET COUNT 271 TH/MM3 (150-450); RED BLOOD COUNT 5.93 MIL/MM3 (4.00-5.30); RED CELL DISTRIBUTION WIDTH 15.9 % (11.6-17.2); WHITE BLOOD COUNT 7.6 TH/MM3 (4.0-11.0)
[2018-02-14 22:01] LABS: BACTERIA, URINE MANY /hpf; BILIRUBIN, URINE NEG (NEG); BLOOD, URINE NEG (NEG); GLUCOSE,URINE NEG (NEG); KETONE, URINE NEG (NEG); MUCUS URINE FEW /lpf (OCC); NITRITE,URINE NEG (NEG); SQUAMOUS EPITHELIAL CELL URINE <1 /hpf (0-5); URINE COLOR COLORLESS (YELLW/STRAW); URINE LEUKOCYTE ESTERASE LARGE (NEG); WHITE BLOOD CELL CLUMPS OCC
[2018-02-15 05:53] VITALS: BP 165/77; PULSE 60; RESP 16; TEMP 97.5; O2SAT 99
[2018-02-15] MEDS: INSULIN NovoLIN REGULAR SUPPLEMENTAL SCALE SQ SCH ×4 (07:45→21:23)
[2018-02-15] MEDS: metFORMIN HCL 500 MG TAB PO SCH (08:37)
[2018-02-15] MEDS: LISINOPRIL 10 MG TAB PO SCH ×2 (08:37→20:31)
[2018-02-15] MEDS: HYDROCHLOROTHIAZIDE 12.5 MG CAP PO SCH (08:37)
[2018-02-15] MEDS: QUEtiapine FUMARATE 25 MG TAB PO SCH ×2 (08:57→21:00)
[2018-02-15] MEDS ORDERED: POTASSIUM CHLORIDE 8 MEQ CAP PO SCH (09:00)
[2018-02-15] MEDS: INSULIN DETEMIR 100 UNITS/ML VIAL SQ SCH (09:00)
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
[2018-02-15] MEDS ORDERED: HYDROCHLOROTHIAZIDE 12.5 MG CAP PO ONE (13:00)
--- NOTE | 2018-02-15 15:05 | PD.TTN ---
Patient Problems 1. Discharge planning 2. Medication compliance 3. Knowledge deficit 4. Lack of coping skills Progress Toward Goals Provider Present: Dr. Inga Saucedo Provider Input: 02/15/18 - Patient requires a HCS and has not been medicated yet. Psychiatric Counselors Present: CHARLES Martinez Psych Therapist Input: 02/15/18 - Patient remains unmedicated because she cannot consent for medications. Patient continues to request help getting a divorce. Counselor will contact [facility] Adult Protective Services insurance investigator, Graciela Pickard for an update regardng the status of this patient's case. Group Spec/RT/OT/COLEMAN Present: Mik Avila OT Group Spec/RT/OT/COLEMAN Input: 02/15/18 - No participation in therapeutic groups and activities. Discharge Plan SMA 02/15/18 - Discharge plan is still being considered. The family the patient lives with is refusing to allow her to return home saying she is too disruptive in the home. Patient does not have any income. Documentation Scribe: CHARLES Martinez Date Resolved: Feb 15, 2018 Shirley Barnes Feb 15, 2018 15:05
[2018-02-15] MEDS ORDERED: MECLIZINE HCL 25 MG TAB PO PRN (16:30)
[2018-02-15 18:06] VITALS: BP 139/65; PULSE 70; RESP 17; TEMP 98.1; O2SAT 98
[2018-02-15] MEDS: SULFAMETHOXAZOLE-TRIMETHOPRIM DS 800-160 MG TAB PO SCH (20:31)
[2018-02-15] MEDS: ATORVASTATIN 10 MG TAB PO SCH (20:31)
[2018-02-15] MEDS: ACETAMINOPHEN 325 MG TAB PO PRN (20:33)
--- NOTE | 2018-02-15 20:58 | RADRPT ---
EXAM DATE/TIME: 02/15/2018 20:22 [place] COMPARISON: No previous studies available for comparison. INDICATIONS : Right lower rib pain. Painful with deep breath. MEDICAL HISTORY : None. SURGICAL HISTORY : None. ENCOUNTER: Initial ACUITY: 1 day PAIN SCORE: 5/10 LOCATION: Bilateral chest FINDINGS: A single view of the chest demonstrates the lungs to be symmetrically aerated without evidence of mas s, infiltrate or effusion. Minimal basilar atelectasis. The cardiomediastinal contours are unremarkab le except tortuous aorta. Osseous structures are intact. CONCLUSION: 1. No acute findings. Minimal basilar atelectasis. Tortuous aorta. Zion Oneil MD on February 15, 2018 at 20:56 Board Certified Radiologist. This report was verified electronically.
--- NOTE | 2018-02-15 22:11 | HHI.PYPN ---
Subjective Remarks Patient seen for follow up; chart reviewed. Mental Status Examination Appearance: Disheveled Consciousness: Alert Orientation: Person, Place, Date/Time Motor Activity: Normal gait Speech: Unremarkable Language: Adequate Fund of Knowledge: Inadequate Attention and Concentration: Adequate Memory: Unremarkable Mood: Good Affect: Euthymic, Anxious Thought Process & Associations: Linear Thought Content: Delusional Hallucination Type: None Delusion Type: Paranoid Suicidal Ideation: No Suicidal Plan: No Suicidal Intention: No Homicidal Ideation: No Homicidal Plan: No Homicidal Intention: No Insight: Poor Judgment: Poor Results Labs Date/Time Source Procedure Growth Status 02/14/18 21:35 Urine Clean Catch Urine Culture - Preliminary Gram Negative Black Resulted Vitals/IOs Vital Signs Date Time Temp Pulse Resp B/P (MAP) Pulse Ox O2 Delivery O2 Flow Rate FiO2 02/15/18 18:06 98.1 70 17 139/65 (89) 98 Intake and Output 02/15/18 02/15/18 02/16/18 08:00 16:00 00:00 Intake Total 720 ml 240 ml Balance 720 ml 240 ml Assessment & Plan Problem List: (1) Unspecified psychosis ICD Codes: F29 - Unspecified psychosis not due to a substance or known physiological condition Assessment & Plan Estimated LOS: Shivam Comer MD Feb 15, 2018 22:11
[2018-02-16 05:41] VITALS: BP 107/62; PULSE 62; RESP 16; TEMP 97.3; O2SAT 100
[2018-02-16] MEDS: INSULIN NovoLIN REGULAR SUPPLEMENTAL SCALE SQ SCH ×4 (07:26→21:00)
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
[2018-02-16] MEDS ORDERED: HYDROCHLOROTHIAZIDE 25 MG TAB PO SCH (09:00)
[2018-02-16] MEDS: INSULIN DETEMIR 100 UNITS/ML VIAL SQ SCH (09:00)
[2018-02-16] MEDS: QUEtiapine FUMARATE 25 MG TAB PO SCH ×2 (09:00→21:19)
[2018-02-16] MEDS: ACETAMINOPHEN 325 MG TAB PO PRN (09:28)
[2018-02-16] MEDS: LISINOPRIL 10 MG TAB PO SCH ×2 (09:29→21:19)
[2018-02-16] MEDS: metFORMIN HCL 500 MG TAB PO SCH (09:29)
[2018-02-16] MEDS: SULFAMETHOXAZOLE-TRIMETHOPRIM DS 800-160 MG TAB PO SCH ×2 (09:29→21:18)
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
[2018-02-16 18:29] VITALS: BP 113/56; PULSE 63; RESP 16; TEMP 97.8; O2SAT 96
[2018-02-16] MEDS: ATORVASTATIN 10 MG TAB PO SCH (21:18)
[2018-02-16] MEDS: PHENAZOPYRIDINE HCL 100 MG TAB PO SCH (22:21)
[2018-02-17] MEDS: PHENAZOPYRIDINE HCL 100 MG TAB PO SCH ×3 (05:59→22:04)
[2018-02-17 06:22] VITALS: BP 99/51; PULSE 59; RESP 15; TEMP 98.3; O2SAT 95
[2018-02-17] MEDS: INSULIN NovoLIN REGULAR SUPPLEMENTAL SCALE SQ SCH ×4 (07:36→20:33)
[2018-02-17] MEDS: INSULIN DETEMIR 100 UNITS/ML VIAL SQ SCH (08:57)
[2018-02-17] MEDS: QUEtiapine FUMARATE 25 MG TAB PO SCH ×3 (08:57→20:53)
[2018-02-17] MEDS: metFORMIN HCL 500 MG TAB PO SCH ×2 (08:57→09:00)
[2018-02-17] MEDS: SULFAMETHOXAZOLE-TRIMETHOPRIM DS 800-160 MG TAB PO SCH ×2 (08:57→09:00)
[2018-02-17 09:28] LABS: BICARBONATE 27.2 MEQ/L (21.0-32.0); CALCIUM 9.2 MG/DL (8.5-10.1); CREATININE 1.7 MG/DL (0.50-1.00)
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
[2018-02-17 17:50] VITALS: BP 112/61; PULSE 77; RESP 18; TEMP 98.1; O2SAT 99
[2018-02-17] MEDS: CEFUROXIME AXETIL 250 MG TAB PO SCH (20:52)
[2018-02-17] MEDS: ATORVASTATIN 10 MG TAB PO SCH (20:52)
[2018-02-18 05:27] VITALS: BP 133/63; PULSE 62; RESP 16; TEMP 97.7; O2SAT 97
[2018-02-18] MEDS: PHENAZOPYRIDINE HCL 100 MG TAB PO SCH (05:51)
[2018-02-18 07:37] LABS: BICARBONATE 27.5 MEQ/L (21.0-32.0); CALCIUM 9.4 MG/DL (8.5-10.1); CREATININE 1.67 MG/DL (0.50-1.00)
[2018-02-18] MEDS: INSULIN NovoLIN REGULAR SUPPLEMENTAL SCALE SQ SCH ×4 (08:00→21:22)
[2018-02-18] MEDS: QUEtiapine FUMARATE 25 MG TAB PO SCH ×2 (08:22→21:20)
[2018-02-18] MEDS: INSULIN DETEMIR 100 UNITS/ML VIAL SQ SCH (08:32)
[2018-02-18] MEDS: CEFUROXIME AXETIL 250 MG TAB PO SCH (10:24)
--- NOTE | 2018-02-18 11:35 | RADRPT ---
EXAM DATE/TIME: 02/18/2018 10:16 [facility] COMPARISON: No previous studies available for comparison. INDICATIONS : Increased lab values. MEDICAL HISTORY : Hypertension. Diabetes. SURGICAL HISTORY : None. ENCOUNTER: Initial ACUITY: 1 day PAIN SCORE: 0/10 LOCATION: Bilateral flank MEASUREMENTS: RIGHT KIDNEY: 11.0 x 5.1 x 3.3 cm LEFT KIDNEY: 10.4 x 4.3 x 4.1 cm FINDINGS: RIGHT KIDNEY: Renal cortex is normal in thickness and echotexture. No hydronephrosis, stone, or mass. Incidental n ote is made of a 1.1 x 1.0 cm simple cyst. LEFT KIDNEY: Renal cortex is normal in thickness and echotexture. No hydronephrosis, stone, or mass. BLADDER: Within normal limits given the degree of distension. CONCLUSION: 1. Small simple cyst in the cortex of the right kidney. 2. No findings to indicate obstruction identified. Иван Hawkins MD on February 18, 2018 at 11:31 Board Certified Radiologist. This report was verified electronically.
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
[2018-02-18 16:55] VITALS: BP 180/80; PULSE 77
[2018-02-18 16:57] VITALS: BP 177/74; PULSE 71
[2018-02-18] MEDS ORDERED: hydrALAZINE HCL 10 MG TAB PO PRN (18:00)
[2018-02-18 18:06] VITALS: BP 189/77; PULSE 80; RESP 16; TEMP 97.3; O2SAT 98
[2018-02-18] MEDS: ATORVASTATIN 10 MG TAB PO SCH (21:20)
[2018-02-18] MEDS: CEFUROXIME AXETIL 500 MG TAB PO SCH (21:20)
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
[2018-02-19 00:22] VITALS: BP 114/73; PULSE 68
[2018-02-19 05:26] VITALS: BP 135/59; PULSE 67; RESP 16; TEMP 97.8; O2SAT 98
[2018-02-19] MEDS: INSULIN NovoLIN REGULAR SUPPLEMENTAL SCALE SQ SCH ×4 (07:23→21:41)
[2018-02-19] MEDS: CEFUROXIME AXETIL 500 MG TAB PO SCH ×2 (08:24→21:44)
[2018-02-19] MEDS: QUEtiapine FUMARATE 25 MG TAB PO SCH ×2 (08:24→21:42)
[2018-02-19] MEDS: INSULIN DETEMIR 100 UNITS/ML VIAL SQ SCH (08:39)
[2018-02-19 09:12] LABS: BICARBONATE 26.6 MEQ/L (21.0-32.0); CALCIUM 9.6 MG/DL (8.5-10.1); CREATININE 1.39 MG/DL (0.50-1.00)
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
[2018-02-19] MEDS: ATORVASTATIN 10 MG TAB PO SCH (21:44)
[2018-02-20 06:46] VITALS: BP 178/66; PULSE 74; RESP 16; TEMP 98.1; O2SAT 98
[2018-02-20] MEDS: INSULIN NovoLIN REGULAR SUPPLEMENTAL SCALE SQ SCH ×4 (08:00→21:00)
[2018-02-20] MEDS ORDERED: INSULIN DETEMIR 100 UNITS/ML VIAL SQ SCH ×2 (09:00)
[2018-02-20] MEDS: QUEtiapine FUMARATE 25 MG TAB PO SCH ×2 (09:15→21:24)
[2018-02-20] MEDS: CEFUROXIME AXETIL 500 MG TAB PO SCH ×2 (09:15→21:24)
[2018-02-20 09:17] VITALS: BP 176/87
--- NOTE | 2018-02-20 12:41 | HHI.PYPN ---
Subjective Remarks Patient was seen with help of interpreter translator services. Blood pressure has been elevated and the medical doctor is been alerted. Patient is perseverant on discharge. She remains with various delusions concerning her . Largely keeps to herself. Compliant with medications Mental Status Examination Appearance: Appropriate (In [facility]) Consciousness: Alert Orientation: Person, Place, Date/Time Motor Activity: Normal gait Speech: Unremarkable Language: Adequate Fund of Knowledge: Inadequate Attention and Concentration: Adequate Memory: Unremarkable Mood: Good Affect: Euthymic, Anxious Thought Process & Associations: Linear Thought Content: Delusional (They were trying to poison her or her family) Hallucination Type: None Delusion Type: Paranoid Suicidal Ideation: No Suicidal Plan: No Suicidal Intention: No Homicidal Ideation: No Homicidal Plan: No Homicidal Intention: No Insight: Poor Judgment: Poor Results Labs Date/Time Source Procedure Growth Status 02/14/18 21:35 Urine Clean Catch Urine Culture - Final Klebsiella Pneumoniae Complete Vitals/IOs Vital Signs Date Time Temp Pulse Resp B/P (MAP) Pulse Ox O2 Delivery O2 Flow Rate FiO2 02/20/18 09:17 176/87 (116) 02/20/18 06:46 98.1 74 16 98 Intake and Output 02/20/18 02/20/18 02/21/18 08:00 16:00 00:00 Intake Total 480 ml Balance 480 ml Assessment & Plan Problem List: (1) Unspecified psychosis ICD Codes: F29 - Unspecified psychosis not due to a substance or known physiological condition Assessment & Plan Continue current treatment plan Justification for Cont. Inpt. Patient would decompensate in a less restrictive setting Alan Reyes DO February 20, 2018 12:41
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
[2018-02-20] MEDS ORDERED: cloNIDine HCL 0.1 MG TAB PO PRN (16:00)
[2018-02-20] MEDS: hydrALAZINE HCL 10 MG TAB PO SCH (21:00)
[2018-02-20] MEDS: ATORVASTATIN 10 MG TAB PO SCH (21:24)
[2018-02-21 05:42] VITALS: BP 120/71; PULSE 63; RESP 16; TEMP 97.5; O2SAT 99
[2018-02-21] MEDS: INSULIN NovoLIN REGULAR SUPPLEMENTAL SCALE SQ SCH ×4 (08:00→20:31)
[2018-02-21] MEDS: INSULIN DETEMIR 100 UNITS/ML VIAL SQ SCH (09:00)
[2018-02-21] MEDS: CEFUROXIME AXETIL 500 MG TAB PO SCH ×2 (09:00→20:31)
[2018-02-21] MEDS: hydrALAZINE HCL 10 MG TAB PO SCH ×2 (09:00→20:30)
[2018-02-21] MEDS: QUEtiapine FUMARATE 25 MG TAB PO SCH ×2 (09:00→20:31)
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
--- NOTE | 2018-02-21 13:27 | HHI.PYPN ---
Subjective Remarks Patient was seen and case discussed with nursing. Interview conducted with an manager human resources on video. Today patient has been very oppositional she has been refusing her blood draws, her Accu-Cheks and all her medications. I believe this is an attempt to go home. Psychoeducation was done that refusal would not help her case. She became stubborn and argumentative and remains fixated on minutia. Insight is poor Mental Status Examination Appearance: Appropriate (In [facility]) Consciousness: Alert Orientation: Person, Place, Date/Time Motor Activity: Normal gait Speech: Unremarkable Language: Adequate Fund of Knowledge: Inadequate Attention and Concentration: Adequate Memory: Unremarkable Mood: Oppositional Affect: Irritable Thought Process & Associations: Linear Thought Content: Delusional (They were trying to poison her or her family) Hallucination Type: None Delusion Type: Paranoid Suicidal Ideation: No Suicidal Plan: No Suicidal Intention: No Homicidal Ideation: No Homicidal Plan: No Homicidal Intention: No Insight: Poor Judgment: Poor Results Labs Date/Time Source Procedure Growth Status 02/14/18 21:35 Urine Clean Catch Urine Culture - Final Klebsiella Pneumoniae Complete Vitals/IOs Vital Signs Date Time Temp Pulse Resp B/P (MAP) Pulse Ox O2 Delivery O2 Flow Rate FiO2 02/21/18 05:42 97.5 63 16 120/71 (87) 99 Assessment & Plan Problem List: (1) Unspecified psychosis ICD Codes: F29 - Unspecified psychosis not due to a substance or known physiological condition Assessment & Plan Continue current treatment plan Justification for Cont. Inpt. Patient would decompensate in a less restrictive setting Alan Reyes DO February 21, 2018 13:27
[2018-02-21 17:53] VITALS: O2SAT 99
[2018-02-21] MEDS: ATORVASTATIN 10 MG TAB PO SCH (20:31)
[2018-02-22 05:45] VITALS: BP 164/77; PULSE 62; RESP 16; TEMP 97.9; O2SAT 99
[2018-02-22] MEDS: INSULIN NovoLIN REGULAR SUPPLEMENTAL SCALE SQ SCH ×4 (08:00→21:00)
[2018-02-22 09:16] LABS: BICARBONATE 26.9 MEQ/L (21.0-32.0); CREATININE 1.16 MG/DL (0.50-1.00)
[2018-02-22] MEDS: CEFUROXIME AXETIL 500 MG TAB PO SCH ×2 (09:30→21:43)
[2018-02-22] MEDS: hydrALAZINE HCL 10 MG TAB PO SCH ×2 (09:30→21:42)
[2018-02-22] MEDS: QUEtiapine FUMARATE 25 MG TAB PO SCH ×2 (09:30→21:43)
[2018-02-22] MEDS: INSULIN DETEMIR 100 UNITS/ML VIAL SQ SCH (09:31)
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
[2018-02-22] MEDS: ACETAMINOPHEN 325 MG TAB PO PRN (10:49)
[2018-02-22] MEDS: EUCERIN CREAM 120 GM JAR TOPICAL SCH ×2 (11:45→21:00)
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
--- NOTE | 2018-02-22 14:52 | PD.TTN ---
Patient Problems 1. Discharge planning 2. Medication compliance 3. Knowledge deficit 4. Lack of coping skills Progress Toward Goals Provider Present: Dr. Inga Saucedo Provider Input: 02/15/18 - Patient requires a HCS and has not been medicated yet. 02/22/18 - pt is non compliant, fam does not want him to return. Nurse(s) Input: 02/22/18 - pt is refusing meds, fearful and uncooperative. Psychiatric Counselors Present: Yuan Wood Jr., [facility], CHARLES Martinez Psych Therapist Input: 02/15/18 - Patient remains unmedicated because she cannot consent for medications. Patient continues to request help getting a divorce. Counselor will contact [facility] Adult Protective Services cash shortage investigator, Graciela Pickard for an update regardng the status of this patient's case. 02/22/18 - counselor is covering the unit for another counselor who is sick today. Counselor not familiar with this pt. Group Spec/RT/OT/COLEMAN Present: Mik Avila OT Group Spec/RT/OT/COLEMAN Input: 02/15/18 - No participation in therapeutic groups and activities. 02/22/18 - not participating in group. Discharge Plan SMA 02/15/18 - Discharge plan is still being considered. The family the patient lives with is refusing to allow her to return home saying she is too disruptive in the home. Patient does not have any income. Documentation Scribe: CHARLES Martinez Date Resolved: Feb 15, 2018 Yuan Wood Jr, LADLE PATCHER February 22, 2018 14:52
[2018-02-22 18:20] VITALS: BP 144/68; PULSE 75; RESP 18; TEMP 97.1; O2SAT 97
[2018-02-22 21:00] VITALS: BP 165/66; PULSE 75; RESP 18
[2018-02-22] MEDS: ATORVASTATIN 10 MG TAB PO SCH (21:42)
[2018-02-23 04:00] VITALS: BP 160/107; PULSE 64; RESP 18; TEMP 97.8; O2SAT 99
[2018-02-23] MEDS: INSULIN DETEMIR 100 UNITS/ML VIAL SQ SCH (08:25)
[2018-02-23] MEDS: CEFUROXIME AXETIL 500 MG TAB PO SCH ×2 (08:25→20:53)
[2018-02-23] MEDS: INSULIN NovoLIN REGULAR SUPPLEMENTAL SCALE SQ SCH ×4 (08:25→20:56)
[2018-02-23] MEDS: hydrALAZINE HCL 10 MG TAB PO SCH ×2 (08:25→20:53)
[2018-02-23] MEDS: QUEtiapine FUMARATE 25 MG TAB PO SCH ×2 (08:25→20:54)
[2018-02-23] MEDS: EUCERIN CREAM 120 GM JAR TOPICAL SCH ×2 (08:26→20:55)
[2018-02-23 10:40] VITALS: BP 148/74; PULSE 63
--- NOTE | 2018-02-23 14:17 | HHI.PYPN ---
Subjective Remarks Patient seen for follow, chart reviewed. Discussion nursing staff reported the patient has a compliant medications noted to be somewhat irritable during the fact that she is still here in the hospital and wanted to go home. Patient was seen along with nurse through video interpreter for the deaf. Patient states that she is not happy about doing well because she is still here. Patient continues to be upset the fact that she is continues to be served fish planning her meals and feels that she is "getting big". Patient states that she is all report once the news that certain transverse negative for health and feels that she has been used for testing of this patient. Patient states that she would like to go home, and it was reiterated to the patient that that is not possible due to her family not accepting her back to the home. Patient states that she would like to be discharged to the streets then but again was reminded that she has no income and no support without doing well in the context of her not speaking Czech as well. Patient mentions that she follows that a Yazidi muslim in [place] and that perhaps she may stay in a long term and wanted these restoration facilities. It was explained to the patient is that she continues to be in the hospital due to not having appropriate support and place to be discharged to address her family to refuses to accept her back. Review of Systems Except as stated in HPI: all other systems reviewed are Neg Mental Status Examination Appearance: Appropriate (In [facility]) Consciousness: Alert Orientation: Person, Place, Date/Time Motor Activity: Normal gait Speech: Unremarkable Language: Adequate Fund of Knowledge: Inadequate Attention and Concentration: Adequate Memory: Unremarkable Mood: Other ("Not happy") Affect: Appropriate Thought Process & Associations: Linear Thought Content: Delusional (Not endorsing today) Hallucination Type: None Delusion Type: Paranoid (Less so today) Suicidal Ideation: No Suicidal Plan: No Suicidal Intention: No Homicidal Ideation: No Homicidal Plan: No Homicidal Intention: No Insight: Poor Judgment: Poor Results Labs Date/Time Source Procedure Growth Status 02/14/18 21:35 Urine Clean Catch Urine Culture - Final Klebsiella Pneumoniae Complete Vitals/IOs Vital Signs Date Time Temp Pulse Resp B/P (MAP) Pulse Ox O2 Delivery O2 Flow Rate FiO2 02/23/18 10:40 63 148/74 (98) 02/23/18 04:00 97.8 18 99 Intake and Output 02/23/18 02/23/18 02/24/18 08:00 16:00 00:00 Intake Total 1260 ml Balance 1260 ml Assessment & Plan Problem List: (1) Unspecified psychosis ICD Codes: F29 - Unspecified psychosis not due to a substance or known physiological condition Assessment & Plan Patient this time continues to be compliant with treatment, upset and irritable due to not being allowed to be discharged. Patient continues with limited insight into her current psychosocial situation where her family is no longer allowing her to return back home. Patient will present to mental health court on to determine whether patient will meet criteria for continued hospitalization will be discharged although patient has no place to be discharged to at this time. Continue current treatment. Continue to monitor with behavior. Discharge planning in progress. Justification for Cont. Inpt. At risk for further decompensation if at lower level of care Discharge Planning To be determined Shivam Saucedo MD February 23, 2018 14:17
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
[2018-02-23] MEDS ORDERED: amLODIPine BESYLATE 5 MG TAB PO ONE (17:30)
[2018-02-23 17:49] VITALS: BP 136/63; PULSE 80; RESP 17; TEMP 98.6; O2SAT 98
[2018-02-23] MEDS: ATORVASTATIN 10 MG TAB PO SCH (20:53)
[2018-02-24 06:38] VITALS: BP 118/59; PULSE 66; RESP 18; TEMP 98.2; O2SAT 99
[2018-02-24] MEDS: INSULIN NovoLIN REGULAR SUPPLEMENTAL SCALE SQ SCH ×2 (08:00→12:00)
[2018-02-24] MEDS: QUEtiapine FUMARATE 25 MG TAB PO SCH ×2 (08:39→21:36)
[2018-02-24] MEDS: amLODIPine BESYLATE 5 MG TAB PO SCH (08:39)
[2018-02-24] MEDS: CEFUROXIME AXETIL 500 MG TAB PO SCH ×2 (08:39→21:36)
[2018-02-24] MEDS: INSULIN DETEMIR 100 UNITS/ML VIAL SQ SCH (08:40)
[2018-02-24] MEDS: hydrALAZINE HCL 10 MG TAB PO SCH ×2 (08:40→21:35)
[2018-02-24] MEDS: EUCERIN CREAM 120 GM JAR TOPICAL SCH ×2 (08:41→21:36)
[2018-02-24 11:06] LABS: BICARBONATE 27.5 MEQ/L (21.0-32.0); CALCIUM 9.3 MG/DL (8.5-10.1); CREATININE 0.96 MG/DL (0.50-1.00)
--- NOTE | 2018-02-24 14:27 | PD.TTN ---
Patient Problems 1. Discharge planning 2. Medication compliance 3. Knowledge deficit 4. Lack of coping skills Progress Toward Goals Provider Present: Dr. Inga Saucedo (02/23/18- The patients family should be at court tomorrow. Hopeful for discharge.) Provider Input: 02/15/18 - Patient requires a HCS and has not been medicated yet. 02/22/18 - pt is non compliant, fam does not want him to return. Nurse(s) Input: 02/22/18 - pt is refusing meds, fearful and uncooperative. Psychiatric Counselors Present: Renate Louise LCSW (02/23/18- Pt. is cooperative and has poor insight. Pt. is homeless/rejected by friends.), Yuan Wood Jr. , [facility], Shirley Barnes [facility] Psych Therapist Input: 02/15/18 - Patient remains unmedicated because she cannot consent for medications. Patient continues to request help getting a divorce. Counselor will contact [facility] Adult Protective Services mortician investigator, Graciela Pickard for an update regardng the status of this patient's case. 02/22/18 - counselor is covering the unit for another counselor who is sick today. Counselor not familiar with this pt. Group Spec/RT/OT/COLEMAN Present: Mik Avila OT Group Spec/RT/OT/COLEMAN Input: 02/15/18 - No participation in therapeutic groups and activities. 02/22/18 - not participating in group. Discharge Plan SMA 02/15/18 - Discharge plan is still being considered. The family the patient lives with is refusing to allow her to return home saying she is too disruptive in the home. Patient does not have any income. Documentation Scribe: Shirley Barnes [facility] Date Resolved: Feb 15, 2018 Guicho Reed February 24, 2018 14:27
--- NOTE | 2018-02-24 15:13 | HHI.PR ---
Addendum to Inpatient Note Addendum Reason: Additional Documentation Additional Information Chart reviewed. BP much improved with addition of Norvasc. Creatinine improved 0.96. Patient appears stable from hospitalist standpoint. [facility] will sign off. Please reconsult if needed. Ami Gabriel February 24, 2018 15:13
[2018-02-24] MEDS ORDERED: DEXTROSE 50% IN WATER 50 ML VIAL(D50) IV PUSH PRN (15:30)
[2018-02-24] MEDS ORDERED: GLUCAGON 1 MG/ML VIAL OTHER PRN (15:30)
[2018-02-24] MEDS: INSULIN ASPART SUPPLEMENTAL SCALE SQ SCH ×2 (17:00→21:00)
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
[2018-02-24 18:12] VITALS: BP 148/86; PULSE 79; RESP 18; TEMP 97.9; O2SAT 97
[2018-02-24 21:20] VITALS: BP 172/82; PULSE 73
[2018-02-24] MEDS: ATORVASTATIN 10 MG TAB PO SCH (21:36)
[2018-02-25 06:32] VITALS: BP 175/86; PULSE 74; RESP 16; TEMP 97.7; O2SAT 99
[2018-02-25] MEDS: INSULIN ASPART SUPPLEMENTAL SCALE SQ SCH ×5 (08:00→20:43)
[2018-02-25] MEDS: INSULIN DETEMIR 100 UNITS/ML VIAL SQ SCH ×2 (08:24→09:00)
[2018-02-25] MEDS: BENZONATATE 100 MG CAP PO PRN (08:24)
[2018-02-25] MEDS: QUEtiapine FUMARATE 25 MG TAB PO SCH ×3 (08:25→21:32)
[2018-02-25] MEDS: amLODIPine BESYLATE 5 MG TAB PO SCH ×2 (08:25→09:00)
[2018-02-25] MEDS: metFORMIN HCL 500 MG TAB PO SCH ×2 (08:25→09:00)
[2018-02-25] MEDS: CEFUROXIME AXETIL 500 MG TAB PO SCH (08:25)
[2018-02-25] MEDS: hydrALAZINE HCL 10 MG TAB PO SCH ×3 (08:25→21:31)
[2018-02-25] MEDS: EUCERIN CREAM 120 GM JAR TOPICAL SCH ×2 (09:00→21:33)
[2018-02-25 16:58] VITALS: BP 155/81; PULSE 80; RESP 18; TEMP 97.1; O2SAT 98
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
[2018-02-25] MEDS: ATORVASTATIN 10 MG TAB PO SCH (21:31)
[2018-02-26 05:33] VITALS: BP 135/68; PULSE 62; RESP 16; TEMP 97.3; O2SAT 99
[2018-02-26] MEDS: INSULIN ASPART SUPPLEMENTAL SCALE SQ SCH ×4 (08:00→20:46)
[2018-02-26] MEDS: metFORMIN HCL 500 MG TAB PO SCH (08:56)
[2018-02-26] MEDS: hydrALAZINE HCL 10 MG TAB PO SCH ×2 (08:56→21:25)
[2018-02-26] MEDS: amLODIPine BESYLATE 5 MG TAB PO SCH (08:56)
[2018-02-26] MEDS: QUEtiapine FUMARATE 25 MG TAB PO SCH ×2 (08:56→21:25)
[2018-02-26] MEDS: INSULIN DETEMIR 100 UNITS/ML VIAL SQ SCH (08:58)
[2018-02-26] MEDS: EUCERIN CREAM 120 GM JAR TOPICAL SCH ×2 (09:00→21:29)
[2018-02-26] MEDS ORDERED: guaiFENesin/CODEINE SYRUP 200 MG/20 MG/10 ML CUP PO PRN (15:45)
[2018-02-26 16:45] VITALS: BP 153/73; PULSE 73; RESP 17; TEMP 97.6; O2SAT 99
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
[2018-02-26] MEDS: ATORVASTATIN 10 MG TAB PO SCH (21:25)
[2018-02-27 05:38] VITALS: BP 126/58; PULSE 65; RESP 15; TEMP 97.6; O2SAT 96
[2018-02-27] MEDS: INSULIN ASPART SUPPLEMENTAL SCALE SQ SCH ×4 (08:00→21:00)
[2018-02-27] MEDS: EUCERIN CREAM 120 GM JAR TOPICAL SCH ×2 (09:00→21:32)
[2018-02-27] MEDS: INSULIN DETEMIR 100 UNITS/ML VIAL SQ SCH (09:00)
[2018-02-27] MEDS: metFORMIN HCL 500 MG TAB PO SCH (09:13)
[2018-02-27] MEDS: QUEtiapine FUMARATE 25 MG TAB PO SCH ×2 (09:13→21:30)
[2018-02-27] MEDS: hydrALAZINE HCL 10 MG TAB PO SCH ×2 (09:13→21:29)
[2018-02-27] MEDS: amLODIPine BESYLATE 5 MG TAB PO SCH (09:13)
--- NOTE | 2018-02-27 12:17 | HHI.PYPN ---
Subjective Remarks Interview not conducted today. Nursing nor myself are aware of how to adjust machine to interpret Mandarin. Note reviewed from yesterday were patient was noted to be stable. Nursing does not report any outbursts. She is compliant with her medications. Continues to be selective with food Mental Status Examination Appearance: Appropriate (In [facility]) Consciousness: Alert Orientation: Person, Place, Date/Time Motor Activity: Normal gait Speech: Unremarkable Language: Adequate Fund of Knowledge: Inadequate Attention and Concentration: Adequate Memory: Unremarkable Mood: Other ("Not happy") Affect: Appropriate Thought Process & Associations: Linear Thought Content: Delusional (Stating the lute packer or applier is her biological daughter) Hallucination Type: None Delusion Type: Paranoid (Less so today) Suicidal Ideation: No Suicidal Plan: No Suicidal Intention: No Homicidal Ideation: No Homicidal Plan: No Homicidal Intention: No Insight: Poor Judgment: Poor Results Labs Date/Time Source Procedure Growth Status 02/14/18 21:35 Urine Clean Catch Urine Culture - Final Klebsiella Pneumoniae Complete Vitals/IOs Vital Signs Date Time Temp Pulse Resp B/P (MAP) Pulse Ox O2 Delivery O2 Flow Rate FiO2 02/27/18 05:38 97.6 65 15 126/58 (80) 96 Intake and Output 02/27/18 02/27/18 02/28/18 08:00 16:00 00:00 Intake Total 720 ml Balance 720 ml Assessment & Plan Problem List: (1) Unspecified psychosis ICD Codes: F29 - Unspecified psychosis not due to a substance or known physiological condition Assessment & Plan Nursing asked to acquaint themselves and how to use the machine for translation tomorrow Justification for Cont. Inpt. Patient would decompensate in a less restrictive setting lAan Reyes DO February 27, 2018 12:17
[2018-02-27] MEDS: ATORVASTATIN 10 MG TAB PO SCH (21:30)
[2018-02-28 05:47] VITALS: BP 138/78; PULSE 77; RESP 16; TEMP 96.9; O2SAT 97
[2018-02-28] MEDS: INSULIN ASPART SUPPLEMENTAL SCALE SQ SCH ×4 (08:00→21:00)
[2018-02-28] MEDS: EUCERIN CREAM 120 GM JAR TOPICAL SCH ×2 (09:00→21:00)
[2018-02-28] MEDS: metFORMIN HCL 500 MG TAB PO SCH (09:00)
[2018-02-28] MEDS: QUEtiapine FUMARATE 25 MG TAB PO SCH ×2 (09:00→21:42)
[2018-02-28] MEDS: amLODIPine BESYLATE 5 MG TAB PO SCH (09:00)
[2018-02-28] MEDS: INSULIN DETEMIR 100 UNITS/ML VIAL SQ SCH (09:00)
[2018-02-28] MEDS: hydrALAZINE HCL 10 MG TAB PO SCH ×2 (09:00→21:46)
--- NOTE | 2018-02-28 12:27 | HHI.PYPN ---
Subjective Remarks Patient was seen and case discussed with nursing. The interview today completed with the aid of spray gun striper services via video. Patient continues to be perseverant on discharge. She is eating well but says sleep is intermittent. She is compliant with her medications. Does not describe any new stressors. She is behaving well on the unit. Mental Status Examination Appearance: Appropriate (In [facility]) Consciousness: Alert Orientation: Person, Place, Date/Time Motor Activity: Normal gait Speech: Unremarkable Language: Adequate Fund of Knowledge: Inadequate Attention and Concentration: Adequate Memory: Unremarkable Mood: Other ("Not happy") Affect: Appropriate Thought Process & Associations: Linear Thought Content: Delusional (Stating the cardiovascular rn is her biological daughter) Hallucination Type: None Delusion Type: Paranoid (Less so today) Suicidal Ideation: No Suicidal Plan: No Suicidal Intention: No Homicidal Ideation: No Homicidal Plan: No Homicidal Intention: No Insight: Poor Judgment: Poor Results Labs Date/Time Source Procedure Growth Status 02/14/18 21:35 Urine Clean Catch Urine Culture - Final Klebsiella Pneumoniae Complete Vitals/IOs Vital Signs Date Time Temp Pulse Resp B/P (MAP) Pulse Ox O2 Delivery O2 Flow Rate FiO2 02/28/18 05:47 96.9 77 16 138/78 (98) 97 Intake and Output 02/28/18 02/28/18 03/01/18 08:00 16:00 00:00 Intake Total 240 ml Balance 240 ml Assessment & Plan Problem List: (1) Unspecified psychosis ICD Codes: F29 - Unspecified psychosis not due to a substance or known physiological condition Assessment & Plan Continue current treatment plan Justification for Cont. Inpt. Patient would decompensate in a less restrictive setting Alan Reyes DO February 28, 2018 12:27
[2018-02-28 17:57] VITALS: BP 122/58; PULSE 75; RESP 16; TEMP 97; O2SAT 98
[2018-02-28 21:00] VITALS: BP 164/74; PULSE 71
[2018-02-28] MEDS: BENZONATATE 100 MG CAP PO PRN (21:42)
[2018-02-28] MEDS: ATORVASTATIN 10 MG TAB PO SCH (21:42)
[2018-03-01 06:09] VITALS: BP 170/77; PULSE 70; RESP 16; TEMP 97.5; O2SAT 97
[2018-03-01] MEDS: INSULIN ASPART SUPPLEMENTAL SCALE SQ SCH ×4 (08:00→21:15)
[2018-03-01] MEDS: hydrALAZINE HCL 10 MG TAB PO SCH ×2 (09:07→21:07)
[2018-03-01] MEDS: QUEtiapine FUMARATE 25 MG TAB PO SCH ×2 (09:07→21:08)
[2018-03-01] MEDS: amLODIPine BESYLATE 5 MG TAB PO SCH (09:07)
[2018-03-01] MEDS: EUCERIN CREAM 120 GM JAR TOPICAL SCH ×2 (09:08→21:09)
[2018-03-01] MEDS: INSULIN DETEMIR 100 UNITS/ML VIAL SQ SCH (09:08)
[2018-03-01] MEDS: metFORMIN HCL 500 MG TAB PO SCH (09:08)
[2018-03-01] MEDS: BENZONATATE 100 MG CAP PO PRN (09:40)
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
[2018-03-01 17:41] VITALS: BP 138/63; PULSE 75; RESP 16; O2SAT 96
[2018-03-01] MEDS: ATORVASTATIN 10 MG TAB PO SCH (21:08)
[2018-03-02 06:12] VITALS: BP 155/71; PULSE 63; RESP 24; TEMP 97.2; O2SAT 99
[2018-03-02] MEDS: INSULIN ASPART SUPPLEMENTAL SCALE SQ SCH ×4 (08:00→21:16)
[2018-03-02] MEDS: metFORMIN HCL 500 MG TAB PO SCH (09:22)
[2018-03-02] MEDS: QUEtiapine FUMARATE 25 MG TAB PO SCH ×2 (09:22→21:31)
[2018-03-02] MEDS: amLODIPine BESYLATE 5 MG TAB PO SCH (09:22)
[2018-03-02] MEDS: hydrALAZINE HCL 10 MG TAB PO SCH ×2 (09:22→21:30)
[2018-03-02] MEDS: INSULIN DETEMIR 100 UNITS/ML VIAL SQ SCH (09:22)
[2018-03-02] MEDS: EUCERIN CREAM 120 GM JAR TOPICAL SCH ×2 (09:29→21:31)
--- NOTE | 2018-03-02 16:42 | HHI.PYPN ---
Subjective Remarks Patient seen for follow, chart reviewed. Discussion nursing staff reported the patient as a compliant with treatment. Patient was found sitting hospital chair noted B, cooperative. Patient states that she is feeling "fine" continues to feel upset that she is not able to be discharged from the hospital otherwise reminded that treatment team is actively searching for safe disposition prior to her discharge as patient has limited resources available to sure that she is in an environment where she has support to assist in her care. Patient denies any perceptual disturbances, states that her son lives at the home and that the ob tech, Anushka Pettit is the son's (daughter-in- law). Patient denies a physical complaints at this time, completed continues to tolerate medications well and addressing her hygiene adequately. Review of Systems Except as stated in HPI: all other systems reviewed are Neg Mental Status Examination Appearance: Appropriate (In [facility]) Consciousness: Alert Orientation: Person, Place, Date/Time Motor Activity: Normal gait Speech: Unremarkable Language: Adequate Fund of Knowledge: Inadequate Attention and Concentration: Adequate Memory: Unremarkable Mood: Other ("Not happy") Affect: Appropriate Thought Process & Associations: Linear Thought Content: Delusional (Stating the ob tech is her biological daughter) Hallucination Type: None Delusion Type: Paranoid (Less so today) Suicidal Ideation: No Suicidal Plan: No Suicidal Intention: No Homicidal Ideation: No Homicidal Plan: No Homicidal Intention: No Insight: Poor Judgment: Poor Results Labs Date/Time Source Procedure Growth Status 02/14/18 21:35 Urine Clean Catch Urine Culture - Final Klebsiella Pneumoniae Complete Vitals/IOs Vital Signs Date Time Temp Pulse Resp B/P (MAP) Pulse Ox O2 Delivery O2 Flow Rate FiO2 03/02/18 06:12 97.2 63 24 155/71 (99) 99 Intake and Output 03/02/18 03/02/18 03/02/18 07:59 15:59 23:59 Intake Total 240 ml 840 ml Balance 240 ml 840 ml Assessment & Plan Problem List: (1) Unspecified psychosis ICD Codes: F29 - Unspecified psychosis not due to a substance or known physiological condition Assessment & Plan Patient at this time continues to be perseverative on discharge. Treatment team has spoken with DCF regarding discharge planning and it is possible that patient's family will have patient return back to her home. Continue current treatment. Continue monitor mood and behavior. Discharge planning in progress. Justification for Cont. Inpt. At risk for further decompensation if at lower level of care Discharge Planning To be determined Shivam Saucedo MD March 02, 2018 16:41
[2018-03-02 18:02] VITALS: BP 142/74; PULSE 66; RESP 16; TEMP 97.4; O2SAT 99
[2018-03-02] MEDS: ATORVASTATIN 10 MG TAB PO SCH (21:30)
[2018-03-03 06:33] VITALS: BP 166/72; PULSE 65; RESP 16; TEMP 97.8; O2SAT 96
[2018-03-03] MEDS: INSULIN ASPART SUPPLEMENTAL SCALE SQ SCH ×3 (08:00→16:38)
[2018-03-03] MEDS: metFORMIN HCL 500 MG TAB PO SCH (08:54)
[2018-03-03] MEDS: hydrALAZINE HCL 10 MG TAB PO SCH (08:54)
[2018-03-03] MEDS: amLODIPine BESYLATE 5 MG TAB PO SCH (08:55)
[2018-03-03] MEDS: EUCERIN CREAM 120 GM JAR TOPICAL SCH (08:55)
[2018-03-03] MEDS: INSULIN DETEMIR 100 UNITS/ML VIAL SQ SCH (08:55)
[2018-03-03] MEDS: QUEtiapine FUMARATE 25 MG TAB PO SCH (09:16)
[2018-03-03] MEDS: BENZONATATE 100 MG CAP PO PRN (09:16)
[2018-03-03] MEDS ORDERED: METF500T PO (14:33)
[2018-03-03] MEDS ORDERED: QUET1TAB7 PO (14:33)
[2018-03-03] MEDS ORDERED: Eucerin Cream TOPICAL (14:33)
[2018-03-03] MEDS ORDERED: HYDR-3798 PO (14:33)
[2018-03-03] MEDS ORDERED: LEVEMIR SQ (14:33)
[2018-03-03] MEDS ORDERED: AMLO5 PO (14:33)
[2018-03-03] MEDS ORDERED: LIPI10TA PO (14:33)
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
== END 2018-03-03 20:15 | disposition home or self-care (01) | DRG 885 ==
LOC: NEPD 23:36 → NEDA 02-10 20:52 → H260 02-10 21:53
PROVIDERS: ADMIT Student in an Organized Health Care Education/Training Program; ATTEND Student in an Organized Health Care Education/Training Program
DX: F29 Unspecified psychosis not due to a substance or known physiological condition (principal); N17.9 Acute kidney failure, unspecified; E11.65 Type 2 diabetes mellitus with hyperglycemia; N39.0 Urinary tract infection, site not specified; N28.1 Cyst of kidney, acquired; F20.0 Paranoid schizophrenia; I10 Essential (primary) hypertension; E78.5 Hyperlipidemia, unspecified; H53.8 Other visual disturbances; R42 Dizziness and giddiness; R07.81 Pleurodynia; B96.1 Klebsiella pneumoniae [K. pneumoniae] as the cause of diseases classified elsewhere; M46.92 Unspecified inflammatory spondylopathy, cervical region; N39.3 Stress incontinence (female) (male); Z59.0 Homelessness; Z79.84 Long term (current) use of oral hypoglycemic drugs; Z91.14 Patient's other noncompliance with medication regimen
CPT/HCPCS: 70450; 71045; 72125; 73030; 76775; 80048; 80053; 80061; 80307; 81001; 82948; 83036; 84443; 85025; 87077; 87086; 87186; 93005; 96372; 99285; J1815